=== PATIENT | female | born 1955 | race Caucasian/White ===

== ENCOUNTER → 2017-01-21 | Outpatient (REF) | payer OTHER ==
[~2017-01-21] MED LIST: HUMA100I3 SC; INSUDET SC; METF-415 PO; MULTCAP PO; TYLE325T5 PO
== END ==
LOC: M SFHCADAM 07:53
PROVIDERS: ATTEND Physician Assistant Medical
DX: Z53.8 Procedure and treatment not carried out for other reasons (principal); E11.9 Type 2 diabetes mellitus without complications; E78.4 Other hyperlipidemia; E55.9 Vitamin D deficiency, unspecified

== ENCOUNTER → 2017-01-23 | Outpatient (REF) | payer OTHER ==
[2017-01-23 16:26] LABS: BASO # 0.1 K/mm3 (0.0-0.2); BASO % 1.1 % (0.0-1.0); EOS # 0.2 K/mm3 (0.0-0.50); EOS % 3.5 % (0.0-3.0); LARGE UNSTAINED CELL # 0.1 K/mm3 (0.0-0.4); LARGE UNSTAINED CELL % 2.2 % (0.0-4.0); LYMPH # 1.8 K/mm3 (1.5-4.5); LYMPH % 26.2 % (24.0-44.0); MEAN CORPUSCULAR HEMOGLOBIN 32.2 pg (27.0-33.0); MEAN CORPUSCULAR HGB CONC 34.1 g/dl (32.0-36.5); MEAN CORPUSCULAR VOLUME 94.5 fl (80.0-96.0); MONO # 0.5 K/mm3 (0.0-0.8); MONO % 7.5 % (0.0-5.0); NEUTROPHILS # 3.7 K/mm3 (1.8-7.7); NEUTROPHILS % 59.6 % (36.0-66.0); PLATELET COUNT, AUTOMATED 158 k/mm3 (150-450); RED CELL DISTRIBUTION WIDTH 12.2 % (11.5-14.5); WHITE BLOOD COUNT 6.2 K/mm3 (4.0-10.0)
[2017-01-23 16:47] LABS: ALBUMIN 4.1 GM/DL (3.2-5.2); ALBUMIN/GLOBULIN RATIO 1.41 (1.00-1.93); ALKALINE PHOSPHATASE 77 U/L (45-117); ALT/SGPT 95 U/L (12-78); ANION GAP 6 MEQ/L (8-16); AST/SGOT 45 U/L (15-37); BILIRUBIN,TOTAL 0.8 MG/DL (0.2-1.0); BLOOD UREA NITROGEN 14 MG/DL (7-18); CALCIUM LEVEL 8.7 MG/DL (8.5-10.1); CARBON DIOXIDE LEVEL 29 MEQ/L (21-32); CHLORIDE LEVEL 107 MEQ/L (98-107); CHOLESTEROL LEVEL 170 MG/DL (<200); CREATININE FOR GFR 0.75 MG/DL (0.55-1.02); GLOMERULAR FILTRATION RATE > 60.0 (>51); GLUCOSE, FASTING 150 MG/DL (70-105); POTASSIUM SERUM 4.8 MEQ/L (3.5-5.1); SODIUM LEVEL 142 MEQ/L (136-145); TRIGLYCERIDES LEVEL 90 MG/DL (<150)
== END ==
LOC: M SFHCADAM 09:08
PROVIDERS: ATTEND Physician Assistant Medical
DX: E11.9 Type 2 diabetes mellitus without complications (principal); E78.4 Other hyperlipidemia; E55.9 Vitamin D deficiency, unspecified

== ENCOUNTER → 2017-08-05 | Outpatient (REF) | payer OTHER ==
[2017-08-05 12:52] LABS: TOTAL 25(OH) VITAMIN D 31.5 NG/ML (30.0-100.0)
[2017-08-05 13:05] LABS: ALBUMIN 3.9 GM/DL (3.2-5.2); ALBUMIN/GLOBULIN RATIO 1.26 (1.00-1.93); ALKALINE PHOSPHATASE 78 U/L (45-117); ALT/SGPT 78 U/L (12-78); ANION GAP 8 MEQ/L (8-16); AST/SGOT 43 U/L (7-37); BILIRUBIN,TOTAL 0.9 MG/DL (0.2-1.0); BLOOD UREA NITROGEN 11 MG/DL (7-18); CALCIUM LEVEL 8.6 MG/DL (8.8-10.2); CARBON DIOXIDE LEVEL 26 MEQ/L (21-32); CHLORIDE LEVEL 106 MEQ/L (98-107); CHOLESTEROL LEVEL 232 MG/DL (<200); CHOLESTEROL RISK RATIO 4.734 (<5); CREATININE FOR GFR 0.65 MG/DL (0.55-1.02); GLOMERULAR FILTRATION RATE > 60.0 (>45); GLUCOSE, FASTING 180 MG/DL (80-110); HDL CHOLESTEROL 49 MG/DL (>40); LDL CHOLESTEROL 159.8 MG/DL (<100); NON-HDL-C 183 MG/DL; POTASSIUM SERUM 4.2 MEQ/L (3.5-5.1); SODIUM LEVEL 140 MEQ/L (136-145); TRIGLYCERIDES LEVEL 116 MG/DL (<150)
[2017-08-05 13:36] LABS: ESTIMATED AVERAGE GLUCOSE 209 MG/DL (60-110); HEMOGLOBIN A1c 8.9 %
== END ==
LOC: M SFHCADAM 08:15
DX: E11.9 Type 2 diabetes mellitus without complications (principal); E78.4 Other hyperlipidemia; E55.9 Vitamin D deficiency, unspecified

== ENCOUNTER → 2018-01-13 | Outpatient (REF) | payer OTHER ==
[2018-01-13 12:52] LABS: ALBUMIN/GLOBULIN RATIO 1.54 (1.00-1.93); ALKALINE PHOSPHATASE 65 U/L (45-117); ALT/SGPT 44 U/L (12-78); ANION GAP 8 MEQ/L (8-16); AST/SGOT 20 U/L (7-37); BILIRUBIN,TOTAL 0.5 MG/DL (0.2-1.0); BLOOD UREA NITROGEN 15 MG/DL (7-18); CALCIUM LEVEL 8.9 MG/DL (8.8-10.2); CARBON DIOXIDE LEVEL 28 MEQ/L (21-32); CHLORIDE LEVEL 107 MEQ/L (98-107); CREATININE FOR GFR 0.64 MG/DL (0.55-1.30); GLOMERULAR FILTRATION RATE > 60.0 (>45); GLUCOSE, FASTING 163 MG/DL (70-100); POTASSIUM SERUM 5.1 MEQ/L (3.5-5.1); SODIUM LEVEL 143 MEQ/L (136-145); TOTAL PROTEIN 6.6 GM/DL (6.4-8.2)
[2018-01-13 13:09] LABS: ESTIMATED AVERAGE GLUCOSE 177 MG/DL (60-110); HEMOGLOBIN A1c 7.8 %
== END ==
LOC: M SFHCADAM 07:55
DX: E11.9 Type 2 diabetes mellitus without complications (principal)
CPT/HCPCS: 80053

== ENCOUNTER → 2018-07-09 | Outpatient (REF) | payer OTHER ==
[2018-07-09 17:48] LABS: BASO # 0.1 10^3/uL (0.0-0.2); BASO % 1.7 % (0.0-1.0); EOS # 0.1 10^3/uL (0.0-0.50); EOS % 3.1 % (0.0-3.0); HEMATOCRIT 42.7 % (36.0-47.0); HEMOGLOBIN 14.4 g/dl (12.0-15.5); IMMATURE GRANULOCYTE % 0.2 % (0-3.0); LYMPH # 1.2 10^3/uL (1.5-4.5); LYMPH % 27.8 % (24.0-44.0); MEAN CORPUSCULAR HEMOGLOBIN 31.1 pg (27.0-33.0); MEAN CORPUSCULAR HGB CONC 33.7 g/dl (32.0-36.5); MEAN CORPUSCULAR VOLUME 92.2 fl (80.0-96.0); MONO # 0.7 10^3/uL (0.0-0.8); MONO % 16.5 % (0.0-5.0); NEUTROPHILS # 2.2 10^3/uL (1.8-7.7); NEUTROPHILS % 50.7 % (36.0-66.0); PLATELET COUNT, AUTOMATED 163 10^3/uL (150-450); RED BLOOD COUNT 4.63 10^6/uL (4.00-5.40); WHITE BLOOD COUNT 4.2 10^3/uL (4.0-10.0)
[2018-07-09 18:11] LABS: ESTIMATED AVERAGE GLUCOSE 197 MG/DL (60-110); HEMOGLOBIN A1c 8.5 %
[2018-07-09 18:15] LABS: MALB URINE SIEMENS 9.7 MG/L; MAU/CREAT RATIO 7.2 MCG/MG (0.0-30.0)
[2018-07-09 18:24] LABS: ALBUMIN 3.8 GM/DL (3.2-5.2); ALBUMIN/GLOBULIN RATIO 1.19 (1.00-1.93); ALKALINE PHOSPHATASE 85 U/L (45-117); ALT/SGPT 74 U/L (12-78); ANION GAP 5 MEQ/L (8-16); AST/SGOT 57 U/L (7-37); BILIRUBIN,TOTAL 0.8 MG/DL (0.2-1.0); BLOOD UREA NITROGEN 13 MG/DL (7-18); CALCIUM LEVEL 8.5 MG/DL (8.8-10.2); CARBON DIOXIDE LEVEL 28 MEQ/L (21-32); CHLORIDE LEVEL 105 MEQ/L (98-107); CHOLESTEROL LEVEL 223 MG/DL (<200); CHOLESTEROL RISK RATIO 5.439 (<5); CREATININE FOR GFR 0.66 MG/DL (0.55-1.30); GLOMERULAR FILTRATION RATE > 60.0 (>45); GLUCOSE, FASTING 111 MG/DL (70-100); HDL CHOLESTEROL 41 MG/DL (>40); LDL CHOLESTEROL 162 MG/DL (<100); NON-HDL-C 182 MG/DL; POTASSIUM SERUM 5.8 MEQ/L (3.5-5.1); SODIUM LEVEL 138 MEQ/L (136-145); TRIGLYCERIDES LEVEL 102 MG/DL (<150)
[2018-07-11 10:24] LABS: TOTAL 25(OH) VITAMIN D 23.1 NG/ML (30.0-100.0)
== END ==
LOC: M SFHCADAM 08:05
DX: E11.9 Type 2 diabetes mellitus without complications (principal); E78.49 Other hyperlipidemia; I10 Essential (primary) hypertension; E55.9 Vitamin D deficiency, unspecified
CPT/HCPCS: 84443

== ENCOUNTER → 2018-07-15 | Outpatient (REF) | payer OTHER | LOC: M SFHCADAM 08:47 | PROVIDERS: ATTEND Physician Assistant Medical | DX: E87.5 Hyperkalemia (principal) ==

== ENCOUNTER → 2018-12-22 | Outpatient (CLI) | payer OTHER ==
--- NOTE | 2018-12-22 09:10 | REP ---
Clinical: Mass. Technique: Real time casanova scale and color evaluation using linear high frequency transducer. Findings: Directed ultrasound examination overlying the palpable mass at the angle of the left mandible demonstrates a complex hypoechoic mass measuring 2.2 x 1.9 x 2.5 cm which appears avascular and somewhat inseparable from the parotid gland. Impression: Complex vascular mass possibly within the parotid gland. Consider contrast enhanced CT for further investigation. Electronically Signed by Yaw Rodriguez MD 12/22/2018 09:01 A
== END ==
LOC: M RAD 07:42
PROVIDERS: ATTEND Nurse Practitioner
DX: C43.9 Malignant melanoma of skin, unspecified (principal); R22.1 Localized swelling, mass and lump, neck

== ENCOUNTER → 2019-01-03 | Outpatient (REF) | payer OTHER ==
[2019-01-03 14:00] LABS: ALBUMIN 3.7 GM/DL (3.2-5.2); ALT/SGPT 31 U/L (12-78); BILIRUBIN,TOTAL 0.5 MG/DL (0.2-1.0); BLOOD UREA NITROGEN 14 MG/DL (7-18); CALCIUM LEVEL 8.8 MG/DL (8.8-10.2); CARBON DIOXIDE LEVEL 27 MEQ/L (21-32); CHLORIDE LEVEL 106 MEQ/L (98-107); CHOLESTEROL LEVEL 257 MG/DL (<200); CHOLESTEROL RISK RATIO 5.586 (<5); CREATININE FOR GFR 0.66 MG/DL (0.55-1.30); GLOMERULAR FILTRATION RATE > 60.0 (>45); GLUCOSE, FASTING 154 MG/DL (70-100); HDL CHOLESTEROL 46 MG/DL (>40); LDL CHOLESTEROL 178 MG/DL (<100); NON-HDL-C 211 MG/DL; SODIUM LEVEL 140 MEQ/L (136-145); TRIGLYCERIDES LEVEL 165 MG/DL (<150)
[2019-01-03 14:37] LABS: HEMOGLOBIN A1c 7.5 %
== END ==
LOC: M SFHCADAM 08:23
PROVIDERS: ATTEND Physician Assistant Medical
DX: E11.9 Type 2 diabetes mellitus without complications (principal); E78.49 Other hyperlipidemia; E55.9 Vitamin D deficiency, unspecified

== ENCOUNTER → 2019-03-08 | Outpatient (REF) | payer OTHER | LOC: M LABDRWAD 12:23 | PROVIDERS: ATTEND Physician Assistant Medical | DX: C79.9 Secondary malignant neoplasm of unspecified site (principal) ==

== ENCOUNTER → 2019-03-15 | Outpatient (REF) | payer OTHER | LOC: M LABDRWAD 12:03 | PROVIDERS: ATTEND Physician Assistant Medical | DX: C79.9 Secondary malignant neoplasm of unspecified site (principal) ==

== ENCOUNTER → 2019-04-05 | Outpatient (REF) | payer OTHER | LOC: M LABDRWAD 12:23 | PROVIDERS: ATTEND Physician Assistant Medical | DX: Z79.899 Other long term (current) drug therapy (principal) ==

== ENCOUNTER → 2019-04-06 | Outpatient (CLI) | payer OTHER ==
--- NOTE | 2019-04-06 19:50 | REP ---
Clinical: Fever. History of malignancy. Technique: PA and lateral. Comparison: 12/23/2014. Findings: Mediastinum and cardiac silhouette are normal. Lung wynn demonstrate chronic interstitial changes. A subtle mm nodule in the right lower lung zone cannot be excluded and warrants chest CT evaluation. No effusion. No pneumothorax. Skeletal structures intact. Impression: Cannot exclude 7 mm noncalcified nodule in the right lower lung zone. Chest CT follow-up is recommended for further investigation. Electronically Signed by Yaw Rodriguez MD 04/06/2019 07:42 P
== END ==
LOC: M ADAMS 19:24
PROVIDERS: ATTEND Physician Assistant
DX: R50.9 Fever, unspecified (principal)

== ENCOUNTER → 2019-04-07 | Outpatient (REF) | payer OTHER | LOC: M LAB REF 12:12 | PROVIDERS: ATTEND Physician Assistant | DX: R50.9 Fever, unspecified (principal) ==

== ENCOUNTER → 2019-04-12 | Outpatient (REF) | payer OTHER ==
[~2019-04-12] MED LIST changes: +ACET1TAB55 PO
== END ==
LOC: M LABDRWAD 12:15
PROVIDERS: ATTEND Internal Medicine Hematology & Oncology
DX: C79.9 Secondary malignant neoplasm of unspecified site (principal)

== ENCOUNTER 2019-04-22 18:48 | Inpatient (IN) | payer OTHER ==
[~2019-04-22] VITALS: Ht 157.5 cm; Wt 60.4 kg
[~2019-04-22 18:48] MED LIST changes: -ACET1TAB55 PO
[2019-04-22] MEDS ORDERED: NS 500 ML IV ONE ×2 (19:45→22:15)
--- NOTE | 2019-04-22 20:09 | REPVR ---
PROCEDURE INFORMATION: Exam: CT Head Without Contrast Exam date and time: 04/22/2019 7:47 PM Clinical history: 64 years old, female; Altered mental status/memory loss TECHNIQUE: Imaging protocol: Computed tomography of the head without contrast. Radiation optimization: All CT scans at this facility use at least one of these dose optimization techniques: automated exposure control; mA and/or kV adjustment per patient size (includes targeted exams where dose is matched to clinical indication); or iterative reconstruction. COMPARISON: Thyroid, ST head+neck US 12/22/2018 7:52 AM FINDINGS: Brain: Hyperdense lesion in the posterior parietal lobe of the brain adjacent to the calvarium on the left measures 8 mm. No surrounding edema. Ventricles: Normal. No ventriculomegaly. Bones/joints: Unremarkable. No acute fracture. Sinuses: Visualized sinuses are unremarkable. No fluid levels. Mastoid air cells: Visualized mastoid air cells are well aerated. Soft tissues: Unremarkable. IMPRESSION: Hyperdense lesion in the posterior parietal lobe of the brain adjacent to the calvarium on the left measures 8 mm. No surrounding edema. Electronically signed by: Jayme Saavedra On 04/22/2019 20:08:26 PM
[2019-04-22 20:26] LABS: VENOUS BASE EXCESS -1.5 (-2.0-2.0); VENOUS HCO3 23.2 MEQ/L (23.0-27.0); VENOUS O2 SATURATION 89.4 % (60.0-80.0); VENOUS PARTIAL PRESSURE O2 59.1 mmHg (30.0-50.0); VENOUS PH 7.392 UNITS (7.330-7.430); VENOUS STANDARD HCO3 23.1 MEQ/L; VENOUS TOTAL CO2 24.4 MEQ/L (24.0-28.0)
[2019-04-22 20:27] LABS: HEMATOCRIT 34.6 % (36.0-47.0); HEMOGLOBIN 11.8 g/dl (12.0-15.5); MEAN CORPUSCULAR HEMOGLOBIN 30.5 pg (27.0-33.0); MEAN CORPUSCULAR HGB CONC 34.1 g/dl (32.0-36.5); MEAN CORPUSCULAR VOLUME 89.4 fl (80.0-96.0); RED BLOOD COUNT 3.87 10^6/uL (4.00-5.40)
[2019-04-22 20:32] LABS: WHITE BLOOD COUNT 1.8 10^3/uL (4.0-10.0)
[2019-04-22 20:44] LABS: ATYPICAL LYMPH 3 % (0-5); BASOPHILS 2 % (0-1); LYMPHOCYTES 16 % (16-44); MONOCYTES 8 % (0-5); NEUTROPHILS 60 % (28-66); PLATELET ESTIMATE INVALID (NORMAL)
[2019-04-22 20:45] LABS: ANISOCYTOSIS 1+; POIKILOCYTOSIS 1+
[2019-04-22 20:54] LABS: OSMOLALITY SERUM 277 MOSM/KG (280-301)
[2019-04-22 20:57] LABS: ALBUMIN 2.9 GM/DL (3.2-5.2); ALT/SGPT 40 U/L (12-78); BILIRUBIN,DIRECT 0.4 MG/DL (0.0-0.2); BILIRUBIN,TOTAL 0.9 MG/DL (0.2-1.0); BLOOD UREA NITROGEN 17 MG/DL (7-18); CALCIUM LEVEL 7.7 MG/DL (8.8-10.2); CARBON DIOXIDE LEVEL 23 MEQ/L (21-32); CHLORIDE LEVEL 101 MEQ/L (98-107); CK-MB VALUE MASS < 1.0 NG/ML (<3.6); CPK CREATINE PHOSPHOKINASE 167 U/L (26-192); CREATININE FOR GFR 0.83 MG/DL (0.55-1.30); GLOMERULAR FILTRATION RATE > 60.0 (>45); GLUCOSE, FASTING 179 MG/DL (70-100); LDH LACTATE DEHYDROGENASE 460 U/L (84-246); POTASSIUM SERUM 3.7 MEQ/L (3.5-5.1); SODIUM LEVEL 134 MEQ/L (136-145); TOTAL PROTEIN 5.7 GM/DL (6.4-8.2); TROPONIN I < 0.02 NG/ML (< 0.10)
[2019-04-22] MEDS ORDERED: VANCOMYCIN HCL 1,000 MG, VIAL MATE ADAPTER 1 EACH in D5W 250 ML IV ONE (22:30)
[2019-04-22] MEDS ORDERED: CEFEPIME HCL 2 GM in D5W MINI-BAG PLUS 50 ML IV ONE (22:30)
[2019-04-22] MEDS ORDERED: DEXTROSE 50% 50 ML SYRINGE IV PRN (23:30)
[2019-04-22] MEDS ORDERED: MOM 30ML SUSPENSION UDC PO PRN (23:30)
[2019-04-22] MEDS ORDERED: GLUCAGON FOR INJ 1 MG VIAL (J1610) SC PRN (23:30)
[2019-04-22] MEDS ORDERED: GLUCOSE 4 GM CHEW TABLET PO PRN (23:30)
[2019-04-22] MEDS ORDERED: NS 1,000 ML IV SCH (23:30)
[2019-04-22] MEDS ORDERED: MAALOX 30 ML SUSP *UDC PO PRN (23:30)
[2019-04-22] MEDS: HumaLOG INSULIN (NovoLOG) PER UNIT SC SCH (23:56)
[2019-04-23] MEDS ORDERED: ACET1TAB55 PO
--- NOTE | 2019-04-23 00:17 | HPEPDOC ---
General Date of Admission Apr 22, 2019 at 23:22 Date of Service: Apr 22, 2019 Chief Complaint The patient is a 64-year-old female admitted with a reason for visit of Neutropenic Fever. Source: Patient Timing/Duration: Day(s) Severity: Moderate History of Present Illness Ms. 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 She is currently receiving immunotherapy; last dose was on Wednesday. Pt presents to Er for evaluation of confusion and fever. Pt reports that she was confused for about one and half hour at home. She was with her at that time. She remembers some of it. But now her mental status to completely normal. Pt also reports having a fever of 102.4F at home and took Tylenol before coming to ER. Pt states that she usually gets "sweats and chills" after each immunotherapy, She denies headache, neck pain, photophobia, chest pain, SOB, cough, abdominal pain, diarrhea, dysuria, rash or joint pain. In ER, pt had soft BP, no tachycardia or fever. WBC 1.8, N 60%; ANC of 1080. CXR and other lab works are normal. She received Cefepime, Vanco and one liter of IV fluid. Head CT shows small 8mm lesion in parietal lobe, likely known brain met. Home Medications Scheduled Insulin Detemir (Levemir) 1 Units/0.01 Ml Susp, 26 UNITS SC QHS, (Reported) Insulin Lispro (Humalog) 100 Unit/Ml Inj, 1 DOSE SC ACHS, (Reported) PER SLIDING SCALE Multivitamin (Multivitamins) 1 Cap Cap, 2 CAP PO DAILY, (Reported) Scheduled PRN Acetaminophen (Acetaminophen) 325 Mg Tablet, 650 MG PO Q4H PRN for PAIN / FEVER, (Reported) Allergies Coded Allergies: amoxicillin (Verified Allergy, Intermediate, HIVES, 04/22/19) Penicillins (Verified Allergy, Mild, 04/22/19) doxycycline (Verified Adverse Reaction, Mild, NAUSEA, 04/22/19) Social History * Smoker: former Smoker Alcohol: Denies Drugs: denies A-FIB/CHADSVASC A-FIB History Current/History of A-Fib/PAF?: No Review of Systems Constitutional: Reports: Chills, Fever, Night Sweats; Denies: Weakness, Fatigue Eyes: Denies: Pain, Vision change ENT: Denies: Head Aches, Ear Pain, Dysphagia, Sinus Congestion, Sore Throat Skin: Denies: Rash, Lesions Pulmonary: Denies: Dyspnea, Cough, Pleuritic Chest Pain Cardiovascular: Denies: Chest Pain, Palpitations, Orthopnea, Edema, Lt Headedness Gastrointestinal: Denies: Nausea, Vomiting, Abdominal Pain, Diarrhea Genitourinary: Denies: Dysuria, Frequency, Incontinence Hematologic: Denies: Bruising, Bleeding Excessively Endocrine: Denies: Polydipsia Musculoskeletal: Denies: Neck Pain, Back Pain, Joint Pain Neurological: Reports: Confusion (brief confusion at home; resolved now); Denies: Weakness, Numbness, Change in speech, Seizures Psych: Reports: Mood Normal; Denies: Anxiety, Depression Physical Examination General Exam: Positive: Alert, Cooperative, No Acute Distress Eye Exam: Positive: PERRLA, Conjunctiva & lids normal; Negative: Sclera icteric ENT Exam: Positive: Atraumatic, Mucous membr. moist/pink, Pharynx Normal Neck Exam: Positive: Supple; Negative: JVD Chest Exam: Positive: Clear to auscultation, Normal air movement; Negative: Rales, Rhonchi, Wheezing Heart Exam: Positive: Rate Normal, Regular Rhythm, Normal S1, Normal S2; Negative: Murmurs Abdomen Exam: Positive: Normal bowel sounds, Soft; Negative: Tenderness, Hepatospenomegaly, Mass Extremity Exam: Positive: Normal pulses; Negative: Edema, Tenderness Skin Exam: Positive: Nl turgor and temperature; Negative: Rash, Breakdown, Lesion Neuro Exam: Positive: Normal Speech, Strength at 5/5 X4 ext, Normal Tone, Cranial Nerves 3-12 NL, Other (no nuchal rigidity) Psych Exam: Positive: Mental status NL, Mood NL, Memory Intact, Oriented x 3; Negative: Anxiety Vital Signs Vital Signs Date Time Temp Pulse Resp B/P (MAP) Pulse Ox O2 Delivery O2 Flow Rate FiO2 04/22/19 23:21 97.5 18 96 Room Air 04/22/19 22:06 88 94/52 (66) 04/22/19 19:30 96 Laboratory Data Labs 24H Laboratory Tests 2 04/22/19 20:16: Nucleated Red Blood Cells % (auto) 0.0, Neutrophils 60, Band Neutrophils 11, Lymphocytes (Manual) 16, Monocytes (Manual) 8H, Basophils (Manual) 2H, Atypical Lymphocytes 3, Platelet Estimate INVALID, Poikilocytosis 1+, Anisocytosis 1+, Blood Gas Bicarbonate Standard 23.1, Venous Blood pH 7.392, Venous Blood Partial Pressure CO2 39.0, Venous Blood Partial Pressure O2 59.1H, Venous Blood Total Carbon Dioxide 24.4, Venous Blood HCO3 23.2, Venous Blood Oxygen Saturation 89.4H, Venous Blood Base Excess -1.5, Anion Gap 10, Glomerular Filtration Rate > 60.0, Osmolality 277L, Lactic Acid Level 1.0, Calcium Level 7.7L, Aspartate Amino Transf (AST/SGOT) 57H, Alanine Aminotransferase (ALT/SGPT) 40, Lactate Dehydrogenase 460H, Alkaline Phosphatase 103, Total Bilirubin 0.9, Direct Bilirubin 0.4H, Ammonia 34H, Total Creatine Kinase 167, Creatine Kinase MB < 1 .0, Creatine Kinase MB Relative Index 0.60, Troponin I < 0.02, Total Protein 5.7L, Albumin 2.9L, Albumin/Globulin Ratio 1.04, Thyroid Stimulating Hormone (TSH) 1.740 04/22/19 20:31: Urine Color YELLOW, Urine Appearance HAZY, Urine pH 5.0, Urine Specific [place] 1.017, Urine Protein NEGATIVE, Urine Glucose (UA) NEGATIVE, Urine Ketones 1+H, Urine Blood NEGATIVE, Urine Nitrite NEGATIVE, Urine Bilirubin NEGATIVE, Urine Urobilinogen 2.0H, Urine Leukocyte Esterase TRACEH, Urine WBC (Auto) 11H, Urine RBC (Auto) 6H, Urine Hyaline Casts (Auto) 1, Urine Bacteria (Auto) 1+H, Urine Sq uamous Epithelial Cells 4, Urine Sperm (Auto) 04/22/19 23:55: Bedside Glucose (Misc Panel) 183H CBC/BMP Laboratory Tests 04/22/19 20:16 Red Blood Count 3.87 L, Mean Corpuscular Volume 89.4, Mean Corpuscular Hemoglobin 30.5, Mean Corpuscular Hemoglobin Concent 34.1, Red Cell Distribution Width 11.9 Microbiology Microbiology 04/22/19 Blood Culture, Received Pending 04/22/19 Blood Culture, Received Pending 04/22/19 Respiratory Virus Panel (PCR) ([facility]), Received Pending 04/22/19 Urine Culture, Received Pending Assessment/Plan Neutropenic Fever, ANC>1K, No clear source of infection - Admit to inpatient - Empiric treatment with IV Vanco and Cefepime - IV fluid - f/u blood c/s - Monitor clinically - Daily CBC - Respiratory viral panel Plan / VTE VTE Prophylaxis Ordered?: Yes Plan IVF: Continue Diet: Continue Current Activity: Continue Current Diagnostics: Repeat Labs in AM Anticipated Discharge: Home JOSE M STEELE MD Apr 23, 2019 00:17
[2019-04-23] MEDS: LEVEMIR (INSULIN DETEMIR) 1 UNITS/0.01ML SC SCH ×2 (00:35→20:52)
[2019-04-23 01:00] VITALS: BP 111/68
--- NOTE | 2019-04-23 04:16 | PHACANCOPD ---
PHARMACY VANCOMYCIN DOSING Pt Demographics Demographics Patient Age:64 , Weight:60.400 , Gender: female Adjusted Body Weight Date: 04/23/19, Adjusted Body Weight: [59.6] Kg(ACTUAL WT) Events Past 24 Hours Events Past 24 Hours: YES: Fever Vancomycin Vancomycin indication: NEUTROPENIC FEVER Vancomycin Target Ranges: 15-20 mcg/ml Vancomycin Load Y/N: No Load Dose Date Time Vancomycin Load Dose: Date: Time: Vancomycin Dose Date: 04/23/19. Current Vancomycin Dose: [1 GM IV Q12H] Intermittent Dosing?: No Labs Labs Laboratory Tests 04/22/19 20:16 Red Blood Count 3.87 L, Mean Corpuscular Volume 89.4, Mean Corpuscular Hemoglobin 30.5, Mean Corpuscular Hemoglobin Concent 34.1, Red Cell Distribution Width 11.9 Micro Microbiology 04/22/19 Blood Culture, Received Pending 04/22/19 Blood Culture, Received Pending 04/22/19 Respiratory Virus Panel (PCR) ([facility]AR[facility]) - Final, Complete 04/22/19 Urine Culture, Received Pending Creatinine Clearance Date:04/23/19. Creatinine Clearance: [66].(CALCULATED) Assessment and Plan Maintaining Current Dose?: Yes Reason for dose change: No Dose Change Pharmacist Note Pharmacist Note Date: 04/23/19. Pharmacist note: 64 YOF HX of melanoma w/metastatic involvement- currently receiving immunotherapy.Wt:59.6kg,Ht:62",SCR=0.83,Calculated CRCL= 66,Allergies: pcn,amox(hives),Doxycycline(nausea);currently receiving Cefepime 2 grams IV Q8 hours and Vancomycin per Pharmacy dosing protocol. Vancomycin 1 GM administered in ED 04/22@23:45.then will continue with Vanco 1 gram IV [id number] t o begin in AM@0900.First trough is scheduled 04/24@0800(prior to the 4th dose)- will continue to follow labs V[facility]NU [facility] Apr 23, 2019 04:16
[2019-04-23 06:00] VITALS: BP 117/66
[2019-04-23] MEDS: ENOXAPARIN 40 MG/0.4 ML SYRINGE (J1650) SC SCH (06:12)
[2019-04-23] MEDS: ACETAMINOPHEN TAB 650MG DOSE (2X325MG) PO PRN ×2 (06:12→17:57)
[2019-04-23] MEDS ORDERED: CEFEPIME HCL 2 GM in D5W MINI-BAG PLUS 50 ML IV SCH ×2 (07:00→11:00)
[2019-04-23] MEDS: CEFEPIME HCL 2 GM in D5W MINI-BAG PLUS 50 ML IV SCH ×3 (07:24→22:34)
[2019-04-23] MEDS: HumaLOG INSULIN (NovoLOG) PER UNIT SC SCH ×4 (08:51→21:00)
[2019-04-23] MEDS ORDERED: VANCOMYCIN HCL 750 MG, VIAL MATE ADAPTER 1 EACH in D5W 250 ML IV SCH (09:00)
[2019-04-23] MEDS ORDERED: VANCOMYCIN HCL 1,000 MG, VIAL MATE ADAPTER 1 EACH in D5W 250 ML IV SCH (09:00)
[2019-04-23 10:00] VITALS: BP 110/53
--- NOTE | 2019-04-23 10:04 | REP ---
CHEST, SINGLE VIEW: There is no evidence of acute infiltrate. No pleural effusion is seen. The heart is normal in size. The mediastinal silhouette is unremarkable. The visualized osseous structures are intact. IMPRESSION: No acute pulmonary disease. Electronically Signed by Hiro Cisneros MD 04/23/2019 05:58 P
[2019-04-23 13:21] LABS: CK-MB VALUE MASS < 1.0 NG/ML (<3.6); CPK CREATINE PHOSPHOKINASE 115 U/L (26-192); MB/CK RELATIVE INDEX 0.87 (< OR =4); TROPONIN I < 0.02 NG/ML (< 0.10)
[2019-04-23 13:22] LABS: FREE T4 1.39 NG/DL (0.76-1.46)
--- NOTE | 2019-04-23 13:24 | IPNPDOC ---
Subjective Date Seen The patient was seen on 04/23/19. Subjective Chief Complaint/HPI Ms. Ruvalcaba reports that she is generally feeling ok now, but came to the hospital last night when she was having fevers and feeling confused. Her oncologist at [facility], Dr. Manuel Gaitan , called me this morning and the resulting conversation was very helpful. He said that she is not on any traditional chemotherapeutic agents, but rather on a combination biologic called IPI/Nivo (ipilimumab and nivolumab). This combination is apparently the best thing right now for melanoma with brain mets, which she has. As he describes it, this combination sort of activates the immune system to fight the cancer, but it isn't that specific yet and so there are a number of side effects from this combination that may mimic neutropenic fever. He pointed out that with an ANC of 1200 she isn't technically neutropenic. He suggested minimizing antibiotics if at all possible since there is some emerging evidence that shows that patients who are treated with biologic agents for cancer and get broad spectrum antibiotics tend to do worse with their cancer. The reason for this isn't clear yet, but the correlation has been verified. Because she is on IPI/Nivo he suggested we monitor for cardiomyositis with a CK-MB and TpnI. If this is present fatal arrhythmia would be the largest concern. He also suggested that we monitor her for a hypophysitis with TSH, fT4, tT3, cortisol and ACTH stimulation test if needed. He also suggested an MRI of the brain with pituitary cuts to look for radiographic evidence of hypophysitis. If none of these are present, her BCx are negative x 48h, her fever is suppressed, and the ANC is on the rise, then he suspects that her symptoms are related to the IPI/Nivo and she can be discharged. He will discuss whether she should receive a 4th dose with them at a later date. He was very willing to field any other calls/questions we may have. General: Reports: Fatigue Constitutional: Reports: Chills, Fever Pulmonary: Denies: Dyspnea, Cough Cardiovascular: Denies: Chest Pain, Palpitations Genitourinary: Denies: Dysuria Neurological: Reports: Weakness Psych: Reports: Mood Normal; Denies: Memory Issues (since admission) Objective Physical Examination General Exam: Positive: Alert, Cooperative, No Acute Distress Eye Exam: Positive: PERRLA, Conjunctiva & lids normal; Negative: Sclera icteric ENT Exam: Positive: Atraumatic, Mucous membr. moist/pink, Pharynx Normal Neck Exam: Positive: Supple; Negative: Lymphadenopathy Chest Exam: Positive: Clear to auscultation, Normal air movement; Negative: Rales, Rhonchi, Wheezing Heart Exam: Positive: Rate Normal, Regular Rhythm, Normal S1, Normal S2; Negative: Murmurs Abdomen Exam: Positive: Normal bowel sounds, Soft; Negative: Tenderness, Hepatospenomegaly, Mass Extremity Exam: Positive: Normal pulses; Negative: Edema, Tenderness Skin Exam: Positive: Nl turgor and temperature; Negative: Rash, Breakdown, Lesion Neuro Exam: Positive: Normal Speech, Normal Tone, Cranial Nerves 3-12 NL, Other (no nuchal rigidity) Psych Exam: Positive: Mental status NL, Mood NL, Memory Intact, Oriented x 3; Negative: Anxiety Assessment /Plan Problems (1) Fever of unknown origin Status: Acute Discussed With: Dental Office Manager (Dr. Manuel Gaitan) Problem Text: I will stop the Vancomycin as there is no evidence of MRSA. I billie l do a MRSA screen if one wasn't done in the ER. I will continue the cefepime for now until her cultures are negative since it was already started. The Respiratory Panel was negative. Will follow BCx and consider repeating BCx if she gets another fever. If this doesn't show anything then we can assume the fevers are a reaction to her IPI/Nivo. (2) Malignant melanoma metastatic to brain Status: Chronic Discussed With: Dental Office Manager, Patient, Family with Pt Consent Problem Text: This being managed by Dr. Gaitan at [facility]. Will defer further management to him. (3) Neutropenia Status: Acute Problem Specific Plan: Repeat Labs Problem Text: Will monitor labs for now. Theoretically the ANC should improve. However, if the IPI/Nivo is impacting the bone marrow (unlike a traditional chemotherapeutic agent it shouldn't still Dr. Gaitan said sometimes it can to strange things like suppress the bone marrow) it may continue to decline. He would like us to contact him again if this happens. He did not thing that n eutropenic precautions would be helpful to her at this point in time. (4) Diabetes Status: Chronic Response to Treatment: Stable Discussed With: Patient Problem Specific Plan: Monitor Clinically, Repeat Labs Problem Text: She is currently only on insulin. Continue current regimen, monitor. Plan/VTE VTE Prophylaxis Ordered?: Yes (Lovenox) Plan IVF: Continue Diet: Continue Current Activity: Continue Current Diagnostics: Repeat Labs in AM Anticipated Discharge: Home VS, I&O, 24H, Fishbone Vital Signs/I&O Vital Signs Date Time Temp Pulse Resp B/P (MAP) Pulse Ox O2 Delivery O2 Flow Rate FiO2 04/23/19 10:00 98.3 93 15 110/53 (72) 95 04/23/19 00:42 Room Air 04/22/19 19:30 96 I&O- Last 24 Hours up to 6 AM 04/23/19 06:00 Intake Total 1050 ml Output Total 0 ml Balance 1050 ml Laboratory Data 24H LABS Laboratory Tests 2 04/22/19 20:16: Nucleated Red Blood Cells % (auto) 0.0, Neutrophils 60, Band Neutrophils 11, Lymphocytes (Manual) 16, Monocytes (Manual) 8H, Basophils (Manual) 2H, Atypical Lymphocytes 3, Platelet Estimate INVALID, Poikilocytosis 1+, Anisocytosis 1+, Blood Gas Bicarbonate Standard 23.1, Venous Blood pH 7.392, Venous Blood Partial Pressure CO2 39.0, Venous Blood Partial Pressure O2 59.1H, Venous Blood Total Carbon Dioxide 24.4, Venous Blood HCO3 23.2, Venous Blood Oxygen Saturation 89.4H, Venous Blood Base Excess -1.5, Anion Gap 10, Glomerular Filtration Rate > 60.0, Osmolality 277L, Lactic Acid Level 1.0, Calcium Level 7.7L, Aspartate Amino Transf (AST/SGOT) 57H, Alanine Aminotransferase (ALT/SGPT) 40, Lactate Dehydrogenase 460H, Alkaline Phosphatase 103, Total Bilirubin 0.9, Direct Bilirubin 0.4H, Ammonia 34H, Total Creatine Kinase 167, Creatine Kinase MB < 1.0, Creatine Kinase MB Relative Index 0.60, Troponin I < 0.02, Total Protein 5.7L, Albumin 2.9L, Albumin/Globulin Ratio 1.04, Thyroid Stimulating Hormone (TSH) 1.740 04/22/19 20:31: Urine Color YELLOW, Urine Appearance HAZY, Urine pH 5.0, Urine Specific [place] 1.017, Urine Protein NEGATIVE, Urine Glucose (UA) NEGATIVE, Urine Ketones 1+H, Urine Blood NEGATIVE, Urine Nitrite NEGATIVE, Urine Bilirubin NEGATIVE, Urine Urobilinogen 2.0H, Urine Leukocyte Esterase TRACEH, Urine WBC (Auto) 11H, Urine RBC (Auto) 6H, Urine Hyaline Casts (Auto) 1, Urine Bacteria (Auto) 1+H, Urine Squamous Epithelial Cells 4, Urine Sperm (Auto) 04/22/19 23:55: Bedside Glucose (Misc Panel) 183H 04/23/19 02:09: Bedside Glucose (Misc Panel) 131H 04/23/19 11:36: Bedside Glucose (Misc Panel) 96 04/23/19 12:39: Total Creatine Kinase 115, Creatine Kinase MB < 1.0, Creatine Kinase MB Relative Index 0.87, Troponin I < 0.02, Thyroid Stimulating Hormone (TSH) 1.830, Free Thyroxine 1.39 CBC/BMP Laboratory Tests 04/22/19 20:16 Red Blood Count 3.87 L, Mean Corpuscular Volume 89.4, Mean Corpuscular Hemoglobin 30.5, Mean Corpuscular Hemoglobin Concent 34.1, Red Cell Distribution Width 11.9 Microbiology Microbiology 04/22/19 Blood Culture, Received Pending 04/22/19 Blood Culture, Received Pending 04/22/19 Respiratory Virus Panel (PCR) (SHAR[facility]) - Final, Complete 04/22/19 Urine Culture - Final, Complete Lio Jimenez MD Apr 23, 2019 1:24 pm
[2019-04-23] MEDS ORDERED: PROHANCE 279.3MG/ML 5ML VIAL (A9576) As Ordered ONE (14:42)
--- NOTE | 2019-04-23 16:09 | REPVR ---
PROCEDURE INFORMATION: Exam: MR Head Without and With Contrast Exam date and time: 04/23/2019 3:12 PM Clinical history: 64 years old, female; Condition or disease; History of cancer (specify primary cancer site): ; Patient HX: Hm melanoma, on immunotherapy that can cause pituitary issues. ; Additional info: Melanoma, on immunotherapy, pituitary cuts please TECHNIQUE: Imaging protocol: MR of the head without and with intravenous contrast. Contrast material: PROHANCE; Contrast volume: 6 ml; Contrast route: 22G ANGIO; COMPARISON: CT Head without contrast 04/22/2019 7:45 PM FINDINGS: Brain: There is an 8mm T1 and hyperintense T2 peripherally hypointense centrally hyperintense enhancing nodule demonstrating restricted diffusion located in the posterior parietal lobe on the left worrisome for metastatic melanoma. Otherwise unremarkable. Ventricles: Normal. No ventriculomegaly. Bones/joints: Unremarkable. Soft tissues: Unremarkable. Sinuses: Normal as visualized. No acute sinusitis. Mastoid air cells: Normal as visualized. No mastoid effusion. Orbits: Unremarkable. Sella: Unremarkable pituitary gland. IMPRESSION: 1. Focal enhancing nodule in the left posterior parietal region suspicious for a metastasis from patient's underlying melanoma. 2. Unremarkable pituitary gland. Electronically signed by: Jayme Saavedra On 04/23/2019 16:09:09 PM
[2019-04-23 18:00] VITALS: BP 113/63
[2019-04-23 18:47] LABS: CK-MB VALUE MASS < 1.0 NG/ML (<3.6); CPK CREATINE PHOSPHOKINASE 92 U/L (26-192); MB/CK RELATIVE INDEX 1.09 (< OR =4); TROPONIN I < 0.02 NG/ML (< 0.10)
[2019-04-23] MEDS: NS 1,000 ML IV SCH (19:22)
[2019-04-23] MEDS: IBUPROFEN 600 MG TAB PO PRN (20:48)
[2019-04-23 22:00] VITALS: BP 107/62
[2019-04-24 06:00] VITALS: BP 102/60
[2019-04-24] MEDS: ENOXAPARIN 40 MG/0.4 ML SYRINGE (J1650) SC SCH (06:16)
[2019-04-24] MEDS: CEFEPIME HCL 2 GM in D5W MINI-BAG PLUS 50 ML IV SCH ×3 (06:16→22:20)
[2019-04-24 06:32] LABS: HEMATOCRIT 31.5 % (36.0-47.0); HEMOGLOBIN 10.4 g/dl (12.0-15.5); MEAN CORPUSCULAR HEMOGLOBIN 29.5 pg (27.0-33.0); MEAN CORPUSCULAR VOLUME 89.5 fl (80.0-96.0); RED BLOOD COUNT 3.52 10^6/uL (4.00-5.40)
[2019-04-24 07:14] LABS: ALBUMIN 2.2 GM/DL (3.2-5.2); ALT/SGPT 45 U/L (12-78); BILIRUBIN,TOTAL 0.7 MG/DL (0.2-1.0); BLOOD UREA NITROGEN 9 MG/DL (7-18); CALCIUM LEVEL 7.9 MG/DL (8.8-10.2); CARBON DIOXIDE LEVEL 18 MEQ/L (21-32); CHLORIDE LEVEL 113 MEQ/L (98-107); CREATININE FOR GFR 0.52 MG/DL (0.55-1.30); GLOMERULAR FILTRATION RATE > 60.0 (>45); GLUCOSE, FASTING 105 MG/DL (70-100); POTASSIUM SERUM 3.8 MEQ/L (3.5-5.1); SODIUM LEVEL 139 MEQ/L (136-145); TOTAL PROTEIN 5.7 GM/DL (6.4-8.2)
[2019-04-24 07:42] LABS: PLATELET COUNT, AUTOMATED 69 10^3/uL (150-450)
[2019-04-24 07:48] LABS: ATYPICAL LYMPH 3 % (0-5); LYMPHOCYTES 31 % (16-44); MONOCYTES 10 % (0-5); NEUTROPHILS 55 % (28-66); PLATELET ESTIMATE DECREASED (NORMAL)
[2019-04-24] MEDS: NS 1,000 ML IV SCH ×2 (09:09→20:38)
[2019-04-24] MEDS: HumaLOG INSULIN (NovoLOG) PER UNIT SC SCH ×4 (09:10→20:38)
[2019-04-24] MEDS: IBUPROFEN 600 MG TAB PO PRN ×2 (09:12→16:38)
--- NOTE | 2019-04-24 09:43 | IPNPDOC ---
Subjective Date Seen The patient was seen on 04/24/19. Subjective Chief Complaint/HPI neutropenia Events since last encounter Admits to chills alternating with sweats. Constitutional: Reports: Chills; Denies: Fever, Night Sweats Pulmonary: Denies: Dyspnea, Cough Cardiovascular: Denies: Chest Pain, Palpitations, Orthopnea, Paroxysmal Noc. Dyspnea, Lt Headedness Gastrointestinal: Denies: Nausea, Vomiting, Abdominal Pain, Diarrhea, Constipation Genitourinary: Denies: Dysuria, Frequency, Incontinence, Retention Psych: Reports: Mood Normal; Denies: Depression, Memory Issues Objective Physical Examination General Exam: Positive: Alert, Cooperative, No Acute Distress Eye Exam: Positive: PERRLA, Conjunctiva & lids normal; Negative: Sclera icteric ENT Exam: Positive: Atraumatic, Mucous membr. moist/pink, Pharynx Normal Neck Exam: Positive: Supple; Negative: Lymphadenopathy Chest Exam: Positive: Clear to auscultation, Normal air movement; Negative: Rales, Rhonchi, Wheezing Heart Exam: Positive: Rate Normal, Regular Rhythm, Normal S1, Normal S2; Negative: Murmurs Abdomen Exam: Positive: Normal bowel sounds, Soft; Negative: Tenderness, Hepatospenomegaly, Mass Extremity Exam: Positive: Normal pulses; Negative: Edema, Tenderness Skin Exam: Positive: Nl turgor and temperature; Negative: Rash, Breakdown, Lesion Neuro Exam: Positive: Normal Speech, Normal Tone, Cranial Nerves 3-12 NL, Other (no nuchal rigidity) Psych Exam: Positive: Mental status NL, Mood NL, Memory Intact, Oriented x 3; Negative: Anxiety Assessment /Plan Problems (1) Fever of unknown origin Status: Acute Discussed With: Assistant Associate Professor (Dr. Manuel Gaitan) Problem Text: plan dc home if BCX - x 48H 04/23/19 BCX2 NG I will stop the Vancomycin as there is no evidence of MRSA. I will do a MRSA screen if one wasn't done in the ER. I will continue the cefepime for now until her cultures are negative since it was already started. The Respiratory Panel was negative. Will follow BCx and consider repeating BCx if she gets another fever. If this doesn't show anything then we can assume the fevers are a reactio n to her IPI/Nivo. 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 Gaitan at [facility]. no evidence of hypophysitis AM cortisol 18, TSH/FT4 1.8/1.4 Will defer further management to him. (3) Neutropenia Status: Acute Problem Specific Plan: Repeat Labs Problem Text: D2 cefepime 04/24 ANC to 1120 Will monitor labs for now. Theoretically the ANC should improve. However, if the IPI/Nivo is impacting the bone marrow (unlike a traditional chemotherapeutic agent it shouldn't still Dr. Gaitan said sometimes it can to strange things like suppress the bone marrow) it may continue to decline. He would like us to contact him again if this happens. He did not thing that neutropenic precautions would be helpful to her at this point in time. (4) Diabetes Status: Chronic Response to Treatment: Stable Discussed With: Patient Problem Specific Plan: Monitor Clinically, Repeat Labs Problem Text: She is currently only on insulin. Continue current regimen, monitor. Plan/VTE VTE Prophylaxis Ordered?: Yes (Lovenox) Plan IVF: Continue Diet: Continue Current Activity: Continue Current Diagnostics: Repeat Labs in AM Anticipated Discharge: Home VS, I&O, 24H, [facility] Vital Signs/I&O Vital Signs Date Time Temp Pulse Resp B/P (MAP) Pulse Ox O2 Delivery O2 Flow Rate FiO2 04/24/19 06:00 97.1 75 16 102/60 (74) 97 04/23/19 00:42 Room Air 04/22/19 19:30 96 I&O- Last 24 Hours up to 6 AM 04/24/19 05:59 Intake Total 3270 ml Output Total 3675 ml Balance -405 ml Laboratory Data 24H LABS Laboratory Tests 2 04/23/19 11:36: Bedside Glucose (Misc Panel) 96 04/23/19 12:39: Total Creatine Kinase 115, Creatine Kinase MB < 1.0, Creatine Kinase MB Relative Index 0.87, Troponin I < 0.02, Thyroid Stimulating Hormone (TSH) 1.830, Free Thyroxine 1.39 04/23/19 17:06: Bedside Glucose (Misc Panel) 169H 04/23/19 17:56: Total Creatine Kinase 92, Creatine Kinase MB < 1.0, Creatine Kinase MB Relative Index 1.09, Troponin I < 0.02 04/23/19 20:39: Bedside Glucose (Misc Panel) 116H 04/24/19 06:13: Nucleated Red Blood Cells % (auto) 0.0, Neutrophils 55, Band Neutrophils 1, Lymphocytes (Manual) 31, Monocytes (Manual) 10H, Atypical Lymphocytes 3, Platelet Estimate DECREASED, Immature Platelet Fraction 5.5, Red Blood Cell Morphology NORMAL, Anion Gap 8, Glomerular Filtration Rate > 60.0, Blood Urea Nitrogen 9, Creatinine 0.52L, Sodium Level 139, Potassium Level 3.8, Chloride Level 113H, Carbon Dioxide Level 18L, Calcium Level 7.9L, Aspartate Amino Transf (AST/SGOT) 64H, Alanine Aminotransferase (ALT/SGPT) 45, Alkaline Phosphatase 169H, Total Bilirubin 0.7, Total Protein 5.7L, Albumin 2.2#L, Albumin/Globulin Ratio 0.63L, Cortisol AM Sample 18.0 CBC/BMP Laboratory Tests 04/24/19 06:13 Red Blood Count 3.52 L, Mean Corpuscular Volume 89.5, Mean Corpuscular Hemoglobin 29.5, Mean Corpuscular Hemoglobin Concent 33.0, Red Cell Distribution Width 12.4, Calcium Level 7.9 L, Aspartate Amino Transf (AST/SGOT) 64 H, Alanine Aminotransferase (ALT/SGPT) 45, Alkaline Phosphatase 169 H, Total Bilirubin 0.7, Total Protein 5.7 L, Albumin 2.2 #L Microbiology Microbiology 04/23/19 Blood Culture, Received Pending 04/23/19 Blood Culture, Received Pending 04/22/19 Blood Culture - Preliminary, Resulted No growth after 24 hours . All specim... 04/22/19 Blood Culture - Preliminary, Resulted No growth after 24 hours . All specim... 04/22/19 Respiratory Virus Panel (PCR) ([facility]) - Final, Complete 04/22/19 Urine Culture - Final, Complete Esmer Rasmussen Apr 24, 2019 09:43 Jeff Taylor M.D. Apr 24, 2019 17:58
[2019-04-24 10:00] VITALS: BP 108/59
[2019-04-24 10:15] LABS: TOTAL T3 93.7 NG/DL (60.0-181.0)
[2019-04-24 14:00] VITALS: BP 108/53
[2019-04-24 18:00] VITALS: BP 129/61
[2019-04-24] MEDS: LEVEMIR (INSULIN DETEMIR) 1 UNITS/0.01ML SC SCH (20:38)
[2019-04-24 22:00] VITALS: BP 134/65
[2019-04-25] VITALS (7 sets, daily range): BP systolic 114–148; BP diastolic 60–80
[2019-04-25] MEDS: IBUPROFEN 600 MG TAB PO PRN ×2 (05:55→17:50)
[2019-04-25] MEDS: ENOXAPARIN 40 MG/0.4 ML SYRINGE (J1650) SC SCH (05:56)
[2019-04-25 06:20] LABS: HEMATOCRIT 28.5 % (36.0-47.0); HEMOGLOBIN 9.7 g/dl (12.0-15.5); MEAN CORPUSCULAR HEMOGLOBIN 29.6 pg (27.0-33.0); MEAN CORPUSCULAR VOLUME 86.9 fl (80.0-96.0); RED BLOOD COUNT 3.28 10^6/uL (4.00-5.40)
[2019-04-25 06:21] LABS: PLATELET COUNT, AUTOMATED 90 10^3/uL (150-450)
[2019-04-25] MEDS: CEFEPIME HCL 2 GM in D5W MINI-BAG PLUS 50 ML IV SCH ×3 (06:22→23:20)
[2019-04-25 06:52] LABS: ALBUMIN 2.3 GM/DL (3.2-5.2); ALT/SGPT 61 U/L (12-78); ATYPICAL LYMPH 2 % (0-5); BASOPHILS 1 % (0-1); BILIRUBIN,TOTAL 0.7 MG/DL (0.2-1.0); BLOOD UREA NITROGEN 6 MG/DL (7-18); CALCIUM LEVEL 7.5 MG/DL (8.8-10.2); CARBON DIOXIDE LEVEL 22 MEQ/L (21-32); CHLORIDE LEVEL 109 MEQ/L (98-107); CREATININE FOR GFR 0.53 MG/DL (0.55-1.30); GLOMERULAR FILTRATION RATE > 60.0 (>45); GLUCOSE, FASTING 73 MG/DL (70-100); LYMPHOCYTES 38 % (16-44); MONOCYTES 6 % (0-5); NEUTROPHILS 52 % (28-66); POTASSIUM SERUM 3.5 MEQ/L (3.5-5.1); SODIUM LEVEL 138 MEQ/L (136-145); TOTAL PROTEIN 5.2 GM/DL (6.4-8.2)
[2019-04-25 06:53] LABS: PLATELET ESTIMATE DECREASED (NORMAL)
[2019-04-25] MEDS: HumaLOG INSULIN (NovoLOG) PER UNIT SC SCH ×4 (07:30→20:46)
--- NOTE | 2019-04-25 09:26 | IPNPDOC ---
Subjective Date Seen The patient was seen on 04/25/19. Subjective Chief Complaint/HPI Fever 102 this am associated with confusion. Continues to have significant night sweats Constitutional: Reports: Chills, Fever Pulmonary: Denies: Dyspnea, Cough Cardiovascular: Denies: Chest Pain, Palpitations Gastrointestinal: Denies: Nausea, Vomiting, Abdominal Pain, Diarrhea, Constipation Genitourinary: Denies: Dysuria Objective Physical Examination General Exam: Positive: Alert, Cooperative, No Acute Distress ENT Exam: Positive: Mucous membr. moist/pink Neck Exam: Positive: Supple; Negative: Lymphadenopathy Chest Exam: Positive: Clear to auscultation, Normal air movement; Negative: Rales, Rhonchi, Wheezing Heart Exam: Positive: Rate Normal, Regular Rhythm, Normal S1, Normal S2; Negative: Murmurs Abdomen Exam: Positive: Normal bowel sounds, Soft; Negative: Tenderness, Hepatospenomegaly, Mass Extremity Exam: Negative: Edema, Tenderness Skin Exam: Positive: Nl turgor and temperature Neuro Exam: Positive: Normal Speech Psych Exam: Positive: Mental status NL, Oriented x 3 Assessment /Plan Problems (1) Fever of unknown origin Status: Acute Discussed With: Plasterer Spot (Dr. Manuel Gaitan) Problem Text: 04/25 - No source of infection identified via cultures. continues to spike fevers associated with confusion and night sweats 04/23/19 BCX2 NG I will stop the Vancomycin as there is no evidence of MRSA. I will do a MRSA screen if one wasn't done in the ER. I will continue the cefepime for now until her cultures are negative since it was already started. The Respiratory Panel was negative. Will follow BCx and consider repeating BCx if she gets another fever. If this doesn't show anything then we can assume the fevers are a reaction to her IPI/Nivo. 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 Gaitan at [facility]. no evidence of hypophysitis AM cortisol 18, TSH/FT4 1.8/1.4 Will defer further management to him. (3) Neutropenia Status: Acute Response to Treatment: Stable Problem Specific Plan: Repeat Labs Problem Text: D3 cefepime ANC = 1040 04/24 ANC to 1120 Will monitor labs for now. Theoretically the ANC should improve. However, if the IPI/Nivo is impacting the bone marrow (unlike a traditional chemotherapeutic agent it shouldn't still Dr. Gaitan said sometimes it can to strange things like suppress the bone marrow) it may continue to decline. He would like us to contact him again if this happens. He did not thing that neutropenic precautions would be helpful to her at this point in time. (4) Diabetes Status: Chronic Response to Treatment: Stable Discussed With: Patient Problem Specific Plan: Monitor Clinically, Repeat Labs Problem Text: She is currently only on insulin. Continue current regimen, monitor. Plan/VTE VTE Prophylaxis Ordered?: Yes (Lovenox) Plan IVF: Continue Diet: Continue Current Activity: Continue Current Diagnostics: Repeat Labs in AM Anticipated Discharge: Home VS, I&O, 24H, [facility] Vital Signs/I&O Vital Signs Date Time Temp Pulse Resp B/P (MAP) Pulse Ox O2 Delivery O2 Flow Rate FiO2 04/25/19 08:00 96.9 90 24 118/78 (91) 96 04/23/19 00:42 Room Air 04/22/19 19:30 96 I&O- Last 24 Hours up to 6 AM 04/25/19 05:59 Intake Total 3880 ml Output Total 2100 ml Balance 1780 ml Laboratory Data 24H LABS Laboratory Tests 2 04/24/19 11:16: Bedside Glucose (Misc Panel) 93 04/24/19 16:31: Bedside Glucose (Misc Panel) 103 04/24/19 20:24: Bedside Glucose (Misc Panel) 147H 04/25/19 06:01: Nucleated Red Blood Cells % (auto) 0.0, Neutrophils 52, Band Neutrophils 1, Lymphocytes (Manual) 38, Monocytes (Manual) 6H, Basophils (Manual) 1, Atypical Lymphocytes 2, Platelet Estimate DECREASED, Red Blood Cell Morphology NORMAL, Anion Gap 7L, Glomerular Filtration Rate > 60.0, Blood Urea Nitrogen 6L, Creatinine 0.53L, Sodium Level 138, Potassium Level 3.5, Chloride Level 109H, Carbon Dioxide Level 22, Calcium Level 7.5L, Aspartate Amino Transf (AST/SGOT) 73H, Alanine Aminotransferase (ALT/SGPT) 61, Alkaline Phosphatase 309H, Total Bilirubin 0.7, Total Protein 5.2L, Albumin 2.3L, Albumin/Globulin Ratio 0.79L CBC/BMP Laboratory Tests 04/25/19 06:01 Red Blood Count 3.28 L, Mean Corpuscular Volume 86.9, Mean Corpuscular Hemog lobin 29.6, Mean Corpuscular Hemoglobin Concent 34.0, Red Cell Distribution Width 12.4, Calcium Level 7.5 L, Aspartate Amino Transf (AST/SGOT) 73 H, Alanine Aminotransferase (ALT/SGPT) 61, Alkaline Phosphatase 309 H, Total Bilirubin 0.7, Total Protein 5.2 L, Albumin 2.3 L Microbiology Microbiology 04/23/19 Blood Culture - Preliminary, Resulted No growth after 24 hours . All specim... 04/23/19 Blood Culture - Preliminary, Resulted No growth after 24 hours . All specim... 04/22/19 Blood Culture - Preliminary, Resulted No Growth after 48 hours. All Specime... 04/22/19 Blood Culture - Preliminary, Resulted No Growth after 48 hours. All Specime... 04/22/19 Respiratory Virus Panel (PCR) ([facility]) - Final, Complete 04/22/19 Urine Culture - Final, Complete ROBB SHABAZZ PA-C Apr 25, 2019 09:26
[2019-04-25] MEDS: NS 1,000 ML IV SCH ×2 (11:45→23:20)
[2019-04-25] MEDS ORDERED: methylPREDNISolone 4 MG TAB PO ONE ×2 (18:00→21:00)
[2019-04-25] MEDS ORDERED: methylPREDNISolone 4 MG TAB PO SCH (18:30)
[2019-04-25] MEDS ORDERED: LEVEMIR (INSULIN DETEMIR) 1 UNITS/0.01ML SC ONE (21:15)
[2019-04-26 02:00] VITALS: BP 142/82
[2019-04-26 06:00] VITALS: BP 146/88
[2019-04-26] MEDS: ENOXAPARIN 40 MG/0.4 ML SYRINGE (J1650) SC SCH (06:08)
[2019-04-26] MEDS: CEFEPIME HCL 2 GM in D5W MINI-BAG PLUS 50 ML IV SCH (06:08)
[2019-04-26 06:15] LABS: HEMATOCRIT 32.2 % (36.0-47.0); HEMOGLOBIN 10.5 g/dl (12.0-15.5); MEAN CORPUSCULAR HEMOGLOBIN 29.3 pg (27.0-33.0); MEAN CORPUSCULAR HGB CONC 32.6 g/dl (32.0-36.5); MEAN CORPUSCULAR VOLUME 89.9 fl (80.0-96.0); PLATELET COUNT, AUTOMATED 112 10^3/uL (150-450); RED BLOOD COUNT 3.58 10^6/uL (4.00-5.40); WHITE BLOOD COUNT 2.1 10^3/uL (4.0-10.0)
[2019-04-26 06:53] LABS: ALBUMIN 2.7 GM/DL (3.2-5.2); ALT/SGPT 86 U/L (12-78); ATYPICAL LYMPH 3 % (0-5); BASOPHILS 1 % (0-1); BILIRUBIN,TOTAL 0.7 MG/DL (0.2-1.0); BLOOD UREA NITROGEN 7 MG/DL (7-18); CALCIUM LEVEL 7.9 MG/DL (8.8-10.2); CARBON DIOXIDE LEVEL 22 MEQ/L (21-32); CHLORIDE LEVEL 108 MEQ/L (98-107); CREATININE FOR GFR 0.54 MG/DL (0.55-1.30); GLOMERULAR FILTRATION RATE > 60.0 (>45); GLUCOSE, FASTING 238 MG/DL (70-100); LYMPHOCYTES 26 % (16-44); MONOCYTES 6 % (0-5); NEUTROPHILS 64 % (28-66); POTASSIUM SERUM 3.8 MEQ/L (3.5-5.1); SODIUM LEVEL 140 MEQ/L (136-145); TOTAL PROTEIN 6.3 GM/DL (6.4-8.2)
[2019-04-26 06:54] LABS: PLATELET ESTIMATE DECREASED (NORMAL)
[2019-04-26] MEDS: methylPREDNISolone 4 MG TAB PO SCH ×2 (08:07→12:07)
[2019-04-26] MEDS: HumaLOG INSULIN (NovoLOG) PER UNIT SC SCH ×2 (08:07→12:06)
--- NOTE | 2019-04-26 08:28 | IPNPDOC ---
Subjective Date Seen The patient was seen on 04/26/19. Subjective Chief Complaint/HPI Feels better. Temp lower, No confusion. still some night sweats. No abd pain, n/v Constitutional: Reports: Fever; Denies: Chills Pulmonary: Denies: Dyspnea, Cough Cardiovascular: Denies: Chest Pain, Palpitations Gastrointestinal: Denies: Nausea, Vomiting, Abdominal Pain, Diarrhea, Constipation Genitourinary: Denies: Dysuria Objective Physical Examination General Exam: Positive: Alert, Cooperative, No Acute Distress ENT Exam: Positive: Mucous membr. moist/pink Neck Exam: Positive: Supple; Negative: Lymphadenopathy Chest Exam: Positive: Clear to auscultation, Normal air movement; Negative: Rales, Rhonchi, Wheezing Heart Exam: Positive: Rate Normal, Regular Rhythm, Normal S1, Normal S2; Negative: Murmurs Abdomen Exam: Positive: Normal bowel sounds, Soft; Negative: Tenderness, Hepatospenomegaly, Mass Extremity Exam: Negative: Edema, Tenderness Skin Exam: Positive: Nl turgor and temperature Neuro Exam: Positive: Normal Speech Psych Exam: Positive: Mental status NL, Oriented x 3 Assessment /Plan Problems (1) Fever of unknown origin Status: Acute Discussed With: Property Management Coordinator (Dr. Manuel Gaitan) Problem Text: 04/26 - Tmax 100.4. Case discussed with her oncologist who felt that fevers are side effect from her Cancer tx and recommended starting Medrol dose pack. No etiology of fever determined. D/c Abx. Cont Medrol dose pack Liver enzymes elevated, but no GI symptoms. Get Liver Us. D/c home today if Us negative for infection source. 04/25 - No source of infection identified via cultures. continues to spike fevers associated with confusion and night sweats 04/23/19 BCX2 NG I will stop the Vancomycin as there is no evidence of MRSA. I will do a MRSA screen if one wasn't done in the ER. I will continue the cefepime for now until her cultures are negative since it was already started. The Respiratory Panel was negative. Will follow BCx and consider repeating BCx if she gets another fever. If this doesn't show anything then we can assume the fevers are a reaction to her IPI/Nivo. 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 Gaitan at [facility]. no evidence of hypophysitis AM cortisol 18, TSH/FT4 1.8/1.4 Will defer further management to him. (3) Neutropenia Status: Acute Response to Treatment: Improving Problem Specific Plan: Repeat Labs Problem Text: 04/26 - improving D3 cefepime ANC = 1040 04/24 ANC to 1120 Will monitor labs for now. Theoretically the ANC should improve. However, if the IPI/Nivo is impacting the bone marrow (unlike a traditional chemotherapeutic agent it shouldn't still Dr. Gaitan said sometimes it can to strange things like suppress the bone marrow) it may continue to decline. He would like us to contact him again if this happens. He did not thing that neutropenic precautions would be helpful to her at this point in time. (4) Diabetes Status: Chronic Response to Treatment: Stable Discussed With: Patient Problem Specific Plan: Monitor Clinically, Repeat Labs Problem Text: She is currently only on insulin. Continue current regimen, mon itor. Plan/VTE VTE Prophylaxis Ordered?: Yes (Lovenox) Plan IVF: Continue Diet: Continue Current Activity: Continue Current Diagnostics: Repeat Labs in AM Anticipated Discharge: Home VS, I&O, 24H, [facility] Vital Signs/I&O Vital Signs Date Time Temp Pulse Resp B/P (MAP) Pulse Ox O2 Delivery O2 Flow Rate FiO2 04/26/19 06:00 97.7 97 18 146/88 (107) 95 04/23/19 00:42 Room Air 04/22/19 19:30 96 I&O- Last 24 Hours up to 6 AM 04/26/19 06:00 Intake Total 3840 ml Output Total 4550 ml Balance -710 ml Laboratory Data 24H LABS Laboratory Tests 2 04/25/19 11:20: Bedside Glucose (Misc Panel) 110 04/25/19 16:40: Bedside Glucose (Misc Panel) 210H 04/25/19 19:58: Bedside Glucose (Misc Panel) 94 04/26/19 05:49: Nucleated Red Blood Cells % (auto) 0.0, Neutrophils 64, Lymphocytes (Manual) 26, Monocytes (Manual) 6H, Basophils (Manual) 1, Atypical Lymphocytes 3, Platelet Estimate DECREASED, Red Blood Cell Morphology NORMAL, Anion Gap 10, Glomerular Filtration Rate > 60.0, Blood Urea Nitrogen 7, Creatinine 0.54L, Sodium Level 140, Potassium Level 3.8, Chloride Level 108H, Carbon Dioxide Level 22, Calcium Level 7.9L, Aspartate Amino Transf (AST/SGOT) 78H, Alanine Aminotransferase (ALT/SGPT) 86H, Alkaline Phosphatase 386H, Total Bilirubin 0.7, Total Protein 6.3#L, Albumin 2.7L, Albumin/Globulin Ratio 0.75L CBC/BMP Laboratory Tests 04/26/19 05:49 Red Blood Count 3.58 L, Mean Corpuscular Volume 89.9, Mean Corpuscular Hemoglobin 29.3, Mean Corpuscular Hemoglobin Concent 32.6, Red Cell Distribution Width 12.4, Calcium Level 7.9 L, Aspartate Amino Transf (AST/SGOT) 78 H, Alanine Aminotransferase (ALT/SGPT) 86 H, Alkaline Phosphatase 386 H, Total Bilirubin 0.7, Total Protein 6.3 #L, Albumin 2.7 L Microbiology Microbiology 04/23/19 Blood Culture - Preliminary, Resulted No Growth after 48 hours. All Specime... 04/23/19 Blood Culture - Preliminary, Resulted No Growth after 48 hours. All Specime... 04/22/19 Respiratory Virus Panel (PCR) ([facility]) - Final, Complete 04/22/19 Urine Culture - Final, Complete 04/22/19 Blood Culture - Preliminary, Resulted No Growth after 72 hours. All specime... 04/22/19 Blood Culture - Preliminary, Resulted No Growth after 72 hours. All specime... ROBB SHABAZZ PA-C Apr 26, 2019 08:28
[2019-04-26 10:00] VITALS: BP 117/80
[2019-04-26] MEDS ORDERED: MEDR4PAK PO (12:42)
[2019-04-26] MEDS ORDERED: methylPREDNISolone 4 MG TAB PO SCH (21:00)
[2019-04-27] MEDS ORDERED: methylPREDNISolone 4 MG TAB PO SCH (08:00)
--- NOTE | 2019-04-27 08:55 | DSES ---
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 White count was 1.8 with an ANC of 1080. Pertinent labs on admission also included a hemoglobin 11.8, sodium 134, potassium 27, BUN 70, creatinine 0.83, glucose 179. HOSPITAL COURSE: The patient was admitted for neutropenic fever with a unknown source. Workup included CT that showed a hyperintense lesion of the brain in the posterior parietal lobe adjacent to the calvarium on the left measuring 8 mm. MRI shows focal enhancing nodule in the left posterior parietal region suspicious for metastasis from the patient's underlying melanoma. Chest x-ray showed no acute disease. Urine was negative. Blood cultures two sets on the and again another she two sets on the were all negative. Respiratory virus panel was negative. Urine culture was negative. The patient was treated with empirically with IV vancomycin and cefepime but no evidence for Staphylococcus aureus (MRSA), so the vancomycin was discontinued. Cefepime was continued until all the cultures came back and then this was discontinued as well. Other workup to rule out endocarditis, cardial myositis included troponins which were negative. Thyroid was normal, cortisol a.m. sample was normal. With all of this negative testing her oncologist Dr. Gaitan, whom I spoke with, felt that the fevers were most likely related to her ipi/Nivo cancer treatment and he recommended starting a Medrol Dosepak which we restarted yesterday. She felt much better today. She did have a low grade fever but no confusion and she will be discharged home on a Medrol Dosepak 2. Liver enzyme elevations: She has had liver enzyme elevations up and down in the past. No gastrointestinal (GI) symptoms. No nausea or vomiting. Would follow those as an outpatient. Elevation may have been related to the antibiotic. 3. Neutropenia: White blood cell count has improved slightly to 2.1. Absolute neutrophil count also improved. 4. Malignant melanoma metastatic to the brain: This is managed by Dr. Gaitan at [facility]. 5. Diabetes: She is on insulin and has remained on her usual regimen through the hospitalization. DISPOSITION: She is stable for discharge home to followup with [facility] as an outpatient. Diet regular. Activity as tolerated. MEDICATIONS: - methylprednisolone dose pack for 6 days - Tylenol as needed - Levemir 26 units at bedtime with sliding scale morning and at bedtime - multivitamin two tablets daily. DISCHARGE DIAGNOSES: 1. Neutropenic fever. 2. Malignant melanoma metastatic to the brain. 3. Fever of neutropenia. 4. Diabetes. 5. Liver enzyme elevations.
[2019-04-28] MEDS ORDERED: methylPREDNISolone 4 MG TAB PO SCH (08:00)
[2019-04-29] MEDS ORDERED: methylPREDNISolone 4 MG TAB PO SCH (08:00)
[2019-04-30] MEDS ORDERED: methylPREDNISolone 4 MG TAB PO SCH (08:00)
== END 2019-04-26 14:34 | disposition home or self-care (01) | DRG 809 ==
LOC: M ED 18:48 → M ED INP 23:22 → M MSPAV 04-23 00:52
PROVIDERS: ADMIT Internal Medicine; ATTEND Family Medicine
DX: D70.9 Neutropenia, unspecified (principal); C78.01 Secondary malignant neoplasm of right lung; C78.02 Secondary malignant neoplasm of left lung; C79.31 Secondary malignant neoplasm of brain; C79.89 Secondary malignant neoplasm of other specified sites; E11.9 Type 2 diabetes mellitus without complications; R74.8 Abnormal levels of other serum enzymes; C43.9 Malignant melanoma of skin, unspecified; Z88.0 Allergy status to penicillin; Z88.1 Allergy status to other antibiotic agents; Z79.4 Long term (current) use of insulin; Z79.899 Other long term (current) drug therapy

== ENCOUNTER → 2019-05-04 | Outpatient (REF) | payer OTHER ==
[~2019-05-04] MED LIST changes: +ACET1TAB55 PO; +MEDR4PAK PO
[2019-05-04 19:48] LABS: EOS # 0.1 10^3/uL (0.0-0.5); EOS % 2.4 % (0.0-3.0); HEMATOCRIT 41.4 % (36.0-47.0); HEMOGLOBIN 13.3 g/dl (12.0-15.5); LYMPH # 0.6 10^3/uL (1.5-5.0); LYMPH % 15.3 % (24.0-44.0); MEAN CORPUSCULAR HGB CONC 32.1 g/dl (32.0-36.5); MEAN CORPUSCULAR VOLUME 93.5 fl (80.0-96.0); MONO # 0.6 10^3/uL (0.0-0.8); MONO % 13.8 % (0.0-5.0); NEUTROPHILS # 2.8 10^3/uL (1.5-8.5); NEUTROPHILS % 66.5 % (36.0-66.0); PLATELET COUNT, AUTOMATED 156 10^3/uL (150-450); RED BLOOD COUNT 4.43 10^6/uL (4.00-5.40); WHITE BLOOD COUNT 4.2 10^3/uL (4.0-10.0)
[2019-05-04 19:52] LABS: ALBUMIN 3.5 GM/DL (3.2-5.2); ALT/SGPT 35 U/L (12-78); BILIRUBIN,TOTAL 0.9 MG/DL (0.2-1.0); BLOOD UREA NITROGEN 11 MG/DL (7-18); CALCIUM LEVEL 8.9 MG/DL (8.8-10.2); CARBON DIOXIDE LEVEL 30 MEQ/L (21-32); CHLORIDE LEVEL 102 MEQ/L (98-107); CREATININE FOR GFR 0.64 MG/DL (0.55-1.30); GLOMERULAR FILTRATION RATE > 60.0 (>45); GLUCOSE, FASTING 142 MG/DL (70-100); POTASSIUM SERUM 4.6 MEQ/L (3.5-5.1); SODIUM LEVEL 137 MEQ/L (136-145); TOTAL PROTEIN 6.9 GM/DL (6.4-8.2)
== END ==
LOC: M SFHCADAM 11:27
PROVIDERS: ATTEND Physician Assistant Medical
DX: C79.9 Secondary malignant neoplasm of unspecified site (principal); C43.62 Malignant melanoma of left upper limb, including shoulder; R50.81 Fever presenting with conditions classified elsewhere; D70.9 Neutropenia, unspecified

== ENCOUNTER → 2019-05-17 | Outpatient (REF) | payer OTHER | LOC: M LABDRWAD 12:18 | PROVIDERS: ATTEND Physician Assistant Medical | DX: C79.9 Secondary malignant neoplasm of unspecified site (principal) ==

== ENCOUNTER → 2019-07-08 | Outpatient (REF) | payer OTHER ==
[2019-07-08 11:03] LABS: BASO # 0.1 10^3/uL (0.0-0.2); EOS # 0.4 10^3/uL (0.0-0.5); EOS % 7.9 % (0.0-3.0); HEMATOCRIT 43.4 % (36.0-47.0); HEMOGLOBIN 13.8 g/dl (12.0-15.5); LYMPH # 1.5 10^3/uL (1.5-5.0); LYMPH % 31.5 % (24.0-44.0); MEAN CORPUSCULAR HEMOGLOBIN 29.1 pg (27.0-33.0); MEAN CORPUSCULAR HGB CONC 31.8 g/dl (32.0-36.5); MEAN CORPUSCULAR VOLUME 91.6 fl (80.0-96.0); MONO # 0.4 10^3/uL (0.0-0.8); MONO % 8.8 % (0.0-5.0); NEUTROPHILS # 2.4 10^3/uL (1.5-8.5); NEUTROPHILS % 50.6 % (36.0-66.0); PLATELET COUNT, AUTOMATED 175 10^3/uL (150-450); RED BLOOD COUNT 4.74 10^6/uL (4.00-5.40); WHITE BLOOD COUNT 4.8 10^3/uL (4.0-10.0)
[2019-07-08 11:32] LABS: HEMOGLOBIN A1c 8.4 %
[2019-07-08 12:10] LABS: ALBUMIN 3.7 GM/DL (3.2-5.2); ALT/SGPT 26 U/L (12-78); BILIRUBIN,TOTAL 0.7 MG/DL (0.2-1.0); BLOOD UREA NITROGEN 15 MG/DL (7-18); CALCIUM LEVEL 8.8 MG/DL (8.8-10.2); CARBON DIOXIDE LEVEL 29 MEQ/L (21-32); CHLORIDE LEVEL 109 MEQ/L (98-107); CHOLESTEROL LEVEL 227 MG/DL (<200); CHOLESTEROL RISK RATIO 4.203 (<5); CREATININE FOR GFR 0.75 MG/DL (0.55-1.30); GLOMERULAR FILTRATION RATE > 60.0 (>45); GLUCOSE, FASTING 142 MG/DL (70-100); HDL CHOLESTEROL 54 MG/DL (>40); LDL CHOLESTEROL 157 MG/DL (<100); NON-HDL-C 173 MG/DL; POTASSIUM SERUM 4.8 MEQ/L (3.5-5.1); SODIUM LEVEL 143 MEQ/L (136-145); TOTAL PROTEIN 6.6 GM/DL (6.4-8.2); TRIGLYCERIDES LEVEL 80 MG/DL (<150)
[2019-07-10 10:05] LABS: CREATININE, URINE 94.1 MG/DL; MALB URINE SIEMENS 12.2 MG/L; MAU/CREAT RATIO 12.9 MCG/MG (0.0-30.0)
== END ==
LOC: M SFHCADAM 08:09
PROVIDERS: ATTEND Physician Assistant Medical
DX: E11.9 Type 2 diabetes mellitus without complications (principal); K76.0 Fatty (change of) liver, not elsewhere classified; E78.2 Mixed hyperlipidemia

== ENCOUNTER → 2019-07-08 | Outpatient (CLI) | payer OTHER | LOC: M ADAMS 10:18 | PROVIDERS: ATTEND Physician Assistant Medical | DX: E11.9 Type 2 diabetes mellitus without complications (principal); K76.0 Fatty (change of) liver, not elsewhere classified; E78.2 Mixed hyperlipidemia ==

== ENCOUNTER → 2019-12-29 | Outpatient (CLI) | payer OTHER ==
[2019-12-29 11:09] LABS: FREE T4 1.09 NG/DL (0.76-1.46); THYROID STIMULATING HORMONE 1.45 uIU/ML (0.358-3.740)
== END ==
LOC: M LAB 09:39
PROVIDERS: ATTEND Physician Assistant
DX: L80 Vitiligo (principal)

== ENCOUNTER → 2020-01-25 | Outpatient (REF) | payer OTHER ==
[2020-01-25 15:00] LABS: BASO % 0.3 % (0.0-1.0); EOS # 0.2 10^3/uL (0.0-0.5); EOS % 2.8 % (0.0-3.0); HEMATOCRIT 43.4 % (36.0-47.0); HEMOGLOBIN 14.3 g/dl (12.0-15.5); LYMPH # 1.5 10^3/uL (1.5-5.0); LYMPH % 22.7 % (24.0-44.0); MEAN CORPUSCULAR HEMOGLOBIN 31.3 pg (27.0-33.0); MEAN CORPUSCULAR HGB CONC 32.9 g/dl (32.0-36.5); MONO # 0.5 10^3/uL (0.0-0.8); NEUTROPHILS # 4.3 10^3/uL (1.5-8.5); NEUTROPHILS % 65.9 % (36.0-66.0); PLATELET COUNT, AUTOMATED 173 10^3/uL (150-450); RED BLOOD COUNT 4.57 10^6/uL (4.00-5.40); WHITE BLOOD COUNT 6.5 10^3/uL (4.0-10.0)
[2020-01-25 15:26] LABS: HEMOGLOBIN A1c 7.6 %
[2020-01-25 15:35] LABS: ALT/SGPT 29 U/L (12-78); BILIRUBIN,TOTAL 0.7 MG/DL (0.2-1.0); BLOOD UREA NITROGEN 24 MG/DL (7-18); CARBON DIOXIDE LEVEL 27 MEQ/L (21-32); CHLORIDE LEVEL 106 MEQ/L (98-107); CHOLESTEROL LEVEL 246 MG/DL (<200); GLOMERULAR FILTRATION RATE > 60.0 (>45); GLUCOSE, FASTING 133 MG/DL (70-100); HDL CHOLESTEROL 52 MG/DL (>40); LDL CHOLESTEROL 172 MG/DL (<100); NON-HDL-C 194 MG/DL; POTASSIUM SERUM 4.9 MEQ/L (3.5-5.1); SODIUM LEVEL 141 MEQ/L (136-145); TRIGLYCERIDES LEVEL 110 MG/DL (<150)
== END ==
LOC: M SFHCADAM 09:10
PROVIDERS: ATTEND Physician Assistant Medical
DX: E11.9 Type 2 diabetes mellitus without complications (principal); E55.9 Vitamin D deficiency, unspecified; K76.0 Fatty (change of) liver, not elsewhere classified; E78.2 Mixed hyperlipidemia

== ENCOUNTER → 2020-07-22 | Outpatient (REF) | payer OTHER ==
[2020-07-22 12:31] LABS: EOS % 3.4 % (0.0-3.0); HEMATOCRIT 43.2 % (36.0-47.0); HEMOGLOBIN 14.2 g/dl (12.0-15.5); LYMPH # 1.5 10^3/uL (1.5-5.0); LYMPH % 30.8 % (24.0-44.0); MEAN CORPUSCULAR HEMOGLOBIN 31.9 pg (27.0-33.0); MEAN CORPUSCULAR HGB CONC 32.9 g/dl (32.0-36.5); MEAN CORPUSCULAR VOLUME 97.1 fl (80.0-96.0); MONO % 9.8 % (0.0-5.0); NEUTROPHILS # 2.7 10^3/uL (1.5-8.5); NEUTROPHILS % 54.8 % (36.0-66.0); PLATELET COUNT, AUTOMATED 163 10^3/uL (150-450); RED BLOOD COUNT 4.45 10^6/uL (4.00-5.40)
[2020-07-22 12:32] LABS: BASO # 0.1 10^3/uL (0.0-0.2); EOS # 0.2 10^3/uL (0.0-0.5); MONO # 0.5 10^3/uL (0.0-0.8)
[2020-07-22 13:15] LABS: ALBUMIN 3.9 GM/DL (3.2-5.2); ALT/SGPT 29 U/L (12-78); BILIRUBIN,TOTAL 0.7 MG/DL (0.2-1.0); BLOOD UREA NITROGEN 12 MG/DL (7-18); CALCIUM LEVEL 9.1 MG/DL (8.8-10.2); CARBON DIOXIDE LEVEL 29 MEQ/L (21-32); CHLORIDE LEVEL 108 MEQ/L (98-107); CHOLESTEROL LEVEL 233 MG/DL (<200); CHOLESTEROL RISK RATIO 3.949 (<5); CREATININE FOR GFR 0.73 MG/DL (0.55-1.30); GLOMERULAR FILTRATION RATE > 60.0 (>45); GLUCOSE, FASTING 186 MG/DL (70-100); HDL CHOLESTEROL 59 MG/DL (>40); LDL CHOLESTEROL 161 MG/DL (<100); NON-HDL-C 174 MG/DL; POTASSIUM SERUM 5.1 MEQ/L (3.5-5.1); SODIUM LEVEL 141 MEQ/L (136-145); TOTAL PROTEIN 6.9 GM/DL (6.4-8.2); TRIGLYCERIDES LEVEL 66 MG/DL (<150)
[2020-07-22 13:29] LABS: HEMOGLOBIN A1c 7.5 %
[2020-07-22 14:27] LABS: TOTAL 25(OH) VITAMIN D 45.8 NG/ML (30.0-100.0)
== END ==
LOC: M SFHCADAM 08:05
PROVIDERS: ATTEND Physician Assistant Medical
DX: E11.9 Type 2 diabetes mellitus without complications (principal); E55.9 Vitamin D deficiency, unspecified; K76.0 Fatty (change of) liver, not elsewhere classified

== ENCOUNTER → 2021-01-17 | Outpatient (REF) | payer OTHER ==
[2021-01-17 12:59] LABS: BASO % 0.7 % (0.0-1.0); EOS # 0.2 10^3/uL (0.0-0.5); EOS % 3.3 % (0.0-3.0); HEMATOCRIT 43.9 % (36.0-47.0); HEMOGLOBIN 14.3 g/dl (12.0-15.5); LYMPH # 1.4 10^3/uL (1.5-5.0); LYMPH % 25.6 % (24.0-44.0); MEAN CORPUSCULAR HEMOGLOBIN 31.4 pg (27.0-33.0); MEAN CORPUSCULAR HGB CONC 32.6 g/dl (32.0-36.5); MEAN CORPUSCULAR VOLUME 96.5 fl (80.0-96.0); MONO # 0.6 10^3/uL (0.0-0.8); MONO % 10.5 % (2.0-8.0); NEUTROPHILS # 3.3 10^3/uL (1.5-8.5); NEUTROPHILS % 59.5 % (36.0-66.0); PLATELET COUNT, AUTOMATED 172 10^3/uL (150-450); RED BLOOD COUNT 4.55 10^6/uL (4.00-5.40); WHITE BLOOD COUNT 5.5 10^3/uL (4.0-10.0)
[2021-01-17 13:52] LABS: ALBUMIN 4.1 GM/DL (3.2-5.2); ALT/SGPT 40 U/L (12-78); BILIRUBIN,TOTAL 0.6 MG/DL (0.2-1.0); BLOOD UREA NITROGEN 17 MG/DL (7-18); CALCIUM LEVEL 9.5 MG/DL (8.8-10.2); CARBON DIOXIDE LEVEL 28 MEQ/L (21-32); CHLORIDE LEVEL 107 MEQ/L (98-107); CHOLESTEROL LEVEL 227 MG/DL (<200); CHOLESTEROL RISK RATIO 4.632 (<5); CREATININE FOR GFR 0.68 MG/DL (0.55-1.30); GLOMERULAR FILTRATION RATE > 60.0 (>45); GLUCOSE, FASTING 145 MG/DL (70-100); HDL CHOLESTEROL 49 MG/DL (>40); LDL CHOLESTEROL 153 MG/DL (<100); NON-HDL-C 178 MG/DL; POTASSIUM SERUM 4.5 MEQ/L (3.5-5.1); SODIUM LEVEL 140 MEQ/L (136-145); TOTAL 25(OH) VITAMIN D 32.3 NG/ML (30.0-100.0); TOTAL PROTEIN 6.8 GM/DL (6.4-8.2); TRIGLYCERIDES LEVEL 123 MG/DL (<150)
== END ==
LOC: M SFHCADAM 08:19
PROVIDERS: ATTEND Physician Assistant Medical
DX: C79.9 Secondary malignant neoplasm of unspecified site (principal); E11.9 Type 2 diabetes mellitus without complications; I10 Essential (primary) hypertension; E66.01 Morbid (severe) obesity due to excess calories; E55.9 Vitamin D deficiency, unspecified; K76.0 Fatty (change of) liver, not elsewhere classified; E78.2 Mixed hyperlipidemia

== ENCOUNTER → 2021-07-02 | Outpatient (REF) | payer OTHER ==
[2021-07-02 12:42] LABS: BASO % 0.4 % (0.0-1.0); EOS # 0.1 10^3/uL (0.0-0.5); EOS % 1.7 % (0.0-3.0); HEMATOCRIT 44.3 % (36.0-47.0); HEMOGLOBIN 14.4 g/dl (12.0-15.5); LYMPH # 1.1 10^3/uL (1.5-5.0); LYMPH % 15.5 % (24.0-44.0); MEAN CORPUSCULAR HEMOGLOBIN 31.4 pg (27.0-33.0); MEAN CORPUSCULAR HGB CONC 32.5 g/dl (32.0-36.5); MEAN CORPUSCULAR VOLUME 96.7 fl (80.0-96.0); MONO # 0.8 10^3/uL (0.0-0.8); MONO % 11.1 % (2.0-8.0); NEUTROPHILS # 5.1 10^3/uL (1.5-8.5); PLATELET COUNT, AUTOMATED 164 10^3/uL (150-450); RED BLOOD COUNT 4.58 10^6/uL (4.00-5.40); WHITE BLOOD COUNT 7.2 10^3/uL (4.0-10.0)
[2021-07-02 13:08] LABS: MALB URINE SIEMENS 12.4 MG/L; MAU/CREAT RATIO 9.7 MCG/MG (0.0-30.0)
[2021-07-02 13:15] LABS: HEMOGLOBIN A1c 7.3 %
[2021-07-02 13:28] LABS: ALBUMIN 3.7 GM/DL (3.2-5.2); ALT/SGPT 25 U/L (12-78); BILIRUBIN,TOTAL 0.6 MG/DL (0.2-1.0); BLOOD UREA NITROGEN 11 MG/DL (7-18); CALCIUM LEVEL 8.5 MG/DL (8.8-10.2); CARBON DIOXIDE LEVEL 28 MEQ/L (21-32); CHLORIDE LEVEL 105 MEQ/L (98-107); CHOLESTEROL LEVEL 169 MG/DL (<200); CHOLESTEROL RISK RATIO 4.694 (<5); CREATININE FOR GFR 0.69 MG/DL (0.55-1.30); GLOMERULAR FILTRATION RATE > 60.0 (>45); GLUCOSE, FASTING 171 MG/DL (70-100); HDL CHOLESTEROL 36 MG/DL (>40); LDL CHOLESTEROL 85 MG/DL (<100); NON-HDL-C 133 MG/DL; POTASSIUM SERUM 4.9 MEQ/L (3.5-5.1); SODIUM LEVEL 139 MEQ/L (136-145); TOTAL PROTEIN 6.7 GM/DL (6.4-8.2); TRIGLYCERIDES LEVEL 241 MG/DL (<150)
== END ==
LOC: M SFHCADAM 08:12
PROVIDERS: ATTEND Physician Assistant Medical
DX: E11.9 Type 2 diabetes mellitus without complications (principal); I10 Essential (primary) hypertension; E66.01 Morbid (severe) obesity due to excess calories; E55.9 Vitamin D deficiency, unspecified

== ENCOUNTER → 2022-04-17 | Outpatient (REF) | payer MEDICARE, OTHER ==
[2022-04-17 13:08] LABS: BASO # 0.1 10^3/uL (0.0-0.2); EOS # 0.1 10^3/uL (0.0-0.5); EOS % 1.9 % (0.0-3.0); HEMATOCRIT 46.5 % (36.0-47.0); HEMOGLOBIN 15.1 g/dl (12.0-15.5); LYMPH # 1.4 10^3/uL (1.5-5.0); LYMPH % 27.9 % (24.0-44.0); MEAN CORPUSCULAR HEMOGLOBIN 31.2 pg (27.0-33.0); MEAN CORPUSCULAR HGB CONC 32.5 g/dl (32.0-36.5); MEAN CORPUSCULAR VOLUME 96.1 fl (80.0-96.0); MONO # 0.6 10^3/uL (0.0-0.8); MONO % 10.7 % (2.0-8.0); NEUTROPHILS % 58.3 % (36.0-66.0); PLATELET COUNT, AUTOMATED 177 10^3/uL (150-450); RED BLOOD COUNT 4.84 10^6/uL (4.00-5.40); WHITE BLOOD COUNT 5.1 10^3/uL (4.0-10.0)
[2022-04-17 13:58] LABS: ALBUMIN 4.2 GM/DL (3.2-5.2); ALT/SGPT 35 U/L (12-78); BILIRUBIN,TOTAL 0.8 MG/DL (0.2-1.0); BLOOD UREA NITROGEN 13 MG/DL (7-18); CALCIUM LEVEL 9.1 MG/DL (8.8-10.2); CARBON DIOXIDE LEVEL 29 MEQ/L (21-32); CHLORIDE LEVEL 104 MEQ/L (98-107); CHOLESTEROL LEVEL 228 MG/DL (<200); CHOLESTEROL RISK RATIO 4.071 (<5); CREATININE FOR GFR 0.75 MG/DL (0.55-1.30); GLOMERULAR FILTRATION RATE > 60.0 (>45); GLUCOSE, FASTING 136 MG/DL (70-100); HDL CHOLESTEROL 56 MG/DL (>40); LDL CHOLESTEROL 153 MG/DL (<100); NON-HDL-C 172 MG/DL; POTASSIUM SERUM 4.9 MEQ/L (3.5-5.1); SODIUM LEVEL 138 MEQ/L (136-145); TOTAL PROTEIN 7.2 GM/DL (6.4-8.2); TRIGLYCERIDES LEVEL 95 MG/DL (<150)
[2022-04-17 14:13] LABS: HEMOGLOBIN A1c 8.1 %
[2022-04-17 14:21] LABS: TOTAL 25(OH) VITAMIN D 27.8 NG/ML (30.0-100.0)
== END ==
LOC: M SFHCADAM 07:14
PROVIDERS: ATTEND Physician Assistant Medical
DX: E11.9 Type 2 diabetes mellitus without complications (principal); E66.01 Morbid (severe) obesity due to excess calories; E55.9 Vitamin D deficiency, unspecified; E78.2 Mixed hyperlipidemia

== ENCOUNTER → 2022-10-20 | Outpatient (REF) | payer MEDICARE ==
[2022-10-20 14:01] LABS: BASO # 0.1 10^3/uL (0.0-0.2); BASO % 0.7 % (0.0-1.0); EOS # 0.1 10^3/uL (0.0-0.5); EOS % 1.3 % (0.0-3.0); HEMATOCRIT 44.7 % (36.0-47.0); HEMOGLOBIN 14.6 g/dl (12.0-15.5); LYMPH # 2.1 10^3/uL (1.5-5.0); LYMPH % 29.8 % (24.0-44.0); MEAN CORPUSCULAR HEMOGLOBIN 31.1 pg (27.0-33.0); MEAN CORPUSCULAR HGB CONC 32.7 g/dl (32.0-36.5); MEAN CORPUSCULAR VOLUME 95.1 fl (80.0-96.0); MONO # 0.7 10^3/uL (0.0-0.8); MONO % 9.3 % (2.0-8.0); NEUTROPHILS # 4.1 10^3/uL (1.5-8.5); NEUTROPHILS % 58.5 % (36.0-66.0); PLATELET COUNT, AUTOMATED 201 10^3/uL (150-450)
[2022-10-20 14:34] LABS: CREATININE, URINE 92.6 MG/DL; MAU/CREAT RATIO 4.3 MCG/MG (0.0-30.0)
[2022-10-20 14:35] LABS: ALBUMIN 3.9 G/DL (3.2-5.2); ALKALINE PHOSPHATASE 84 U/L (46-116); ALT/SGPT 24 U/L (7.0-40); AST/SGOT 16 U/L (<34); BILIRUBIN,TOTAL 0.4 MG/DL (0.3-1.2); BLOOD UREA NITROGEN 22 MG/DL (9-23); CARBON DIOXIDE LEVEL 29 MMOL/L (20-31); CHLORIDE LEVEL 105 MMOL/L (98-107); CHOLESTEROL LEVEL 228 MG/DL (<200); CHOLESTEROL RISK RATIO 4.11 (<5); CREATININE FOR GFR 0.66 MG/DL (0.55-1.30); GLOMERULAR FILTRATION RATE > 60.0 (>45); GLUCOSE, FASTING 139 MG/DL (74-106); HDL CHOLESTEROL 55.4 MG/DL (>40); LDL CHOLESTEROL 150.6 MG/DL (<100); NON-HDL-C 172.6 MG/DL; POTASSIUM SERUM 4.6 MMOL/L (3.5-5.1); SODIUM LEVEL 141 MMOL/L (136-145); TOTAL PROTEIN 6.7 G/DL (5.7-8.2); TRIGLYCERIDES LEVEL 110 MG/DL (<150)
[2022-10-20 14:37] LABS: THYROID STIMULATING HORMONE 3.627 uIU/ML (0.55-4.78); TOTAL 25(OH) VITAMIN D 27.8 NG/ML (20.0-100.0)
== END ==
LOC: M SFHCADAM 08:05
PROVIDERS: ATTEND Physician Assistant Medical
DX: E11.9 Type 2 diabetes mellitus without complications (principal); I10 Essential (primary) hypertension; E66.01 Morbid (severe) obesity due to excess calories; E55.9 Vitamin D deficiency, unspecified

== ENCOUNTER → 2022-10-22 | Outpatient (REF) | payer MEDICARE ==
[2022-10-22 14:19] LABS: HEMOGLOBIN A1c 8.3 % (4.0-6.0)
== END ==
LOC: M SFHCADAM 10:04
PROVIDERS: ATTEND Physician Assistant Medical
DX: E11.65 Type 2 diabetes mellitus with hyperglycemia (principal)

== ENCOUNTER → 2023-04-15 | Outpatient (REF) | payer MEDICARE ==
[2023-04-15 14:03] LABS: HEMOGLOBIN A1c 7.8 % (4.0-6.0)
[2023-04-15 14:22] LABS: THYROID STIMULATING HORMONE 1.934 uIU/ML (0.55-4.78)
[2023-04-15 14:23] LABS: TOTAL 25(OH) VITAMIN D 31.9 NG/ML (20.0-100.0)
[2023-04-15 14:25] LABS: ALBUMIN 3.8 G/DL (3.2-5.2); ALKALINE PHOSPHATASE 76 U/L (46-116); ALT/SGPT 27 U/L (7.0-40); AST/SGOT 16 U/L (<34); BILIRUBIN,TOTAL 0.5 MG/DL (0.3-1.2); BLOOD UREA NITROGEN 14 MG/DL (9-23); CALCIUM LEVEL 8.8 MG/DL (8.3-10.6); CARBON DIOXIDE LEVEL 27 MMOL/L (20-31); CHLORIDE LEVEL 104 MMOL/L (98-107); CHOLESTEROL LEVEL 198 MG/DL (<200); CHOLESTEROL RISK RATIO 4.02 (<5); CREATININE FOR GFR 0.61 MG/DL (0.55-1.30); GLOMERULAR FILTRATION RATE > 60.0 (>45); GLUCOSE, FASTING 133 MG/DL (74-106); HDL CHOLESTEROL 49.2 MG/DL (>40); LDL CHOLESTEROL 134.6 MG/DL (<100); NON-HDL-C 148.8 MG/DL; POTASSIUM SERUM 4.4 MMOL/L (3.5-5.1); SODIUM LEVEL 141 MMOL/L (136-145); TOTAL PROTEIN 6.3 G/DL (5.7-8.2); TRIGLYCERIDES LEVEL 71 MG/DL (<150)
== END ==
LOC: M SFHCADAM 07:39
PROVIDERS: ATTEND Physician Assistant Medical
DX: E11.65 Type 2 diabetes mellitus with hyperglycemia (principal); E55.9 Vitamin D deficiency, unspecified; K76.0 Fatty (change of) liver, not elsewhere classified

== ENCOUNTER → 2024-07-11 | Outpatient (CLI) | payer MEDICARE | LOC: M WHC 12:38 | PROVIDERS: ATTEND Internal Medicine | DX: Z12.31 Encounter for screening mammogram for malignant neoplasm of breast (principal) ==